=== PATIENT | female | born 1980 | race Caucasian/White ===

== ENCOUNTER 2023-01-06 09:05 | Outpatient (CLI) | payer MEDICARE, SELFPAY ==
--- NOTE | 2023-01-06 09:00 | US_ITS ---
WS: [id number] THYROID ULTRASOUND HISTORY: Desean's with nodules COMPARISON: None available. Right lobe: 1.2 cm x 1.6 cm x 4.2 cm (w x ap x l). Volume: 4.1 cm3. Mildly enlarged heterogeneous nodular thyroid. No discrete well-formed nodules. There is also thicken ing and increased echogenicity throughout the fibrous septa. Left lobe: 1.7 cm x 1.8 cm x 4.8 cm (w x ap x l). Volume: 7.6 cm3. Enlarged, heterogeneous nodular lobe of the thyroid. No well-formed nodules. Thick echogenic fibrous septa throughout the gland. Along the inferior gland there is an additional hypoechoic mass which is probably extension of the th yroid inferiorly and may extend across the midline into the upper chest. Very similar echogenicity as the adjacent thyroid. This additional component measures 3.1 x 1.7 cm. Isthmus: 0.3 cm. IMPRESSION: 1. 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 2. There is an additional solid component measuring 3.1 x 1.7 cm which is isoechoic to the remaining thyroid measuring 3.1 x 1.7 cm. Suspect this is a component of the thyroid gland extending substernal and may cross the midline. No prior studies for comparison. Patient describes prior imaging studies of the thyroid. If these studies become available comparison can be performed. Otherwise consider 6 t o 12-month thyroid ultrasound follow-up.
== END 2023-01-06 09:06 | disposition home or self-care (01) ==
PROVIDERS: PCP Family Medicine Adult Medicine; Visit Provider Family Medicine Adult Medicine
DX: E03.9 Hypothyroidism, unspecified (principal); Z86.39 Personal history of other endocrine, nutritional and metabolic disease
CPT/HCPCS: 76536; 80053; 83036; 84439; 84443; 85025

== ENCOUNTER → 2023-03-08 08:11 | Outpatient (BNVA) | payer MEDICARE, SELFPAY | PROVIDERS: PCP Family Medicine Adult Medicine; Referring Provider Family Medicine Adult Medicine; Visit Provider Internal Medicine | DX: E07.9 Disorder of thyroid, unspecified (principal); E03.9 Hypothyroidism, unspecified; E04.2 Nontoxic multinodular goiter; R13.10 Dysphagia, unspecified; Z79.890 Hormone replacement therapy | CPT/HCPCS: 36415; 84439; 84443; 84480; 99204 ==

== ENCOUNTER 2023-03-30 15:33 | Outpatient (CLI) | payer MEDICARE, SELFPAY ==
[2023-03-30] MEDS: iohexol 350 mg/mL 500 mL Btl (per mL) IV (16:05)
--- NOTE | 2023-03-30 16:30 | CT_ITS ---
WS: [id number] CT NECK TECHNIQUE: Contrast-enhanced CT of the neck with coronal and sagittal reformatted images. CLINICAL INFORMATION: Substernal goiter COMPARISON: Ultrasound 01/06/23 DLP: 586.[address] scans at [facility] use at least one of these dose optimization techniques: automated e xposure control; mA and/or kV adjustment per patient size (includes targeted exams where dose is matc hed to clinical indication); or iterative reconstruction. FINDINGS: Mastoid air cells are well aerated. Paranasal sinuses are well aerated. Normal posterior nasopharynx. Normal parapharyngeal fat. No evidence of supraglottic or glottic mass. Heterogeneous thyroid as described on the recent ultrasound. Low-attenuation RIGHT lower lobe subster nal projecting thyroid nodule measuring 2.7 x 2.6 cm Parotid glands are normal. Normal submandibular glands. No cervical lymphadenopathy. IMPRESSION: 1. Heterogeneous nodular thyroid as described on recent ultrasound. 2. Low-attenuation inferior projecting nodule extending into the upper mediastinum measuring 2.7 x 2 .6 cm. 3. No cervical lymphadenopathy. 4. Normal salivary glands.
--- NOTE | 2023-03-30 17:00 | CT_ITS ---
WS: [id number] CT CHEST TECHNIQUE: Contrast enhanced CT of the chest with coronal and sagittal reformatted images. CLINICAL INFORMATION: Substernal goiter COMPARISON: None. DLP: 586.[address] scans at [facility] use at least one of these dose optimization techniques: automated e xposure control; mA and/or kV adjustment per patient size (includes targeted exams where dose is matc hed to clinical indication); or iterative reconstruction. FINDINGS: Nodular heterogeneous thyroid as seen on the recent ultrasound. Low-attenuation inferior projecting R IGHT thyroid nodule measuring 2.7 x 2.6 cm extending into the upper mediastinum. Normal caliber thora cic aorta. Proximal main pulmonary arteries are normal. No mediastinal or hilar lymphadenopathy. No a xillary lymphadenopathy. 6 mm noncalcified nodule LEFT lower lobe laterally. Recommend 12-month chest CT follow-up. Diffuse fatty infiltration of the liver partially visualized. Normal GE junction. Normal caliber desc ending thoracic aorta. Lungs are well aerated. No acute pulmonary infiltrates. Calcified granuloma RI GHT upper lobe. Mild thoracic curve. IMPRESSION: 1. Low-attenuation inferior projecting RIGHT thyroid nodule measuring 2.7 x 2.6 cm extending into the upper mediastinum. 2. No mediastinal or hilar lymphadenopathy. 3. No acute pulmonary infiltrates. 4. 6 mm noncalcified nodule LEFT lower lobe laterally. Recommend 12-month chest CT follow-up. 5. No other acute findings.
== END 2023-03-30 15:34 | disposition home or self-care (01) ==
PROVIDERS: PCP Family Medicine Adult Medicine; Visit Provider Internal Medicine
DX: E04.2 Nontoxic multinodular goiter (principal)
CPT/HCPCS: 70491; 71260; Q9967

== ENCOUNTER 2023-05-10 09:00 | Outpatient (CLI) | payer MEDICARE, MEDICAID, SELFPAY ==
[2023-05-10 10:01] LABS: Free T4 Free Thyroxine 0.87 ng/dL (0.82-1.77); Thyroid Stimulating Hormone 34.54 uIU/mL (0.27-4.20)
[2023-05-11 11:30] LABS: T3 Total 69 ng/dL (76-181)
== END 2023-05-10 09:01 | disposition home or self-care (01) ==
LOC: LAB 09:01
PROVIDERS: PCP Family Medicine Adult Medicine; Visit Provider Internal Medicine
DX: E07.9 Disorder of thyroid, unspecified (principal)
CPT/HCPCS: 36415; 84439; 84443; 84480

== ENCOUNTER → 2023-05-11 17:00 | Outpatient (BNVA) | payer MEDICARE, MEDICAID, SELFPAY | PROVIDERS: PCP Family Medicine Adult Medicine; Visit Provider Nurse Practitioner Women's Health | DX: Z12.4 Encounter for screening for malignant neoplasm of cervix (principal) | CPT/HCPCS: 88175 ==

== ENCOUNTER → 2023-05-17 14:10 | Outpatient (BNVA) | payer MEDICARE, MEDICAID, SELFPAY | PROVIDERS: PCP Family Medicine Adult Medicine; Visit Provider Psychiatry & Neurology Psychiatry | DX: F43.10 Post-traumatic stress disorder, unspecified (principal); Z79.899 Other long term (current) drug therapy | CPT/HCPCS: 80061; 83036 ==

== ENCOUNTER 2023-05-18 09:35 | Outpatient (CLI) | payer MEDICARE, MEDICAID, SELFPAY ==
--- NOTE | 2023-05-18 09:41 | MM_ITS ---
WS: [id number] BILATERAL 3D TOMOSYNTHESIS DIGITAL SCREENING MAMMOGRAPHY WITH CAD CLINICAL INFORMATION: Z12.39 - Encounter for other screening for malignant neop... HISTORY: Screening mammogram. No current complaints. COMPARISON: 2020 TECHNIQUE: Bilateral CC and MLO views. FINDINGS: The breasts are composed of heterogeneous fibroglandular density tissue, which can limit the detectio n of small underlying mass lesions. Slightly nodular asymmetric density upper outer RIGHT breast mid depth. Recommend RIGHT diagnostic mammography and ultrasound in further evaluation. LEFT breast is unremarkable. IMPRESSION: MM/[place] [id number] BI-RADS: 0-Incomplete: Need additional imaging evaluation FOLLOW UP: Need Additional Imaging Recommend RIGHT breast diagnostic mammography and ultrasound in further evaluat ion.
== END 2023-05-18 09:36 | disposition home or self-care (01) ==
PROVIDERS: PCP Family Medicine Adult Medicine; Visit Provider Nurse Practitioner Women's Health
DX: Z12.31 Encounter for screening mammogram for malignant neoplasm of breast (principal); E03.9 Hypothyroidism, unspecified; E04.2 Nontoxic multinodular goiter; Z79.890 Hormone replacement therapy
CPT/HCPCS: 77063; 77067; 99214

== ENCOUNTER → 2023-05-30 11:14 | Outpatient (BNVA) | payer MEDICARE, SELFPAY | PROVIDERS: PCP Family Medicine Adult Medicine; Visit Provider Nurse Practitioner Women's Health | DX: N93.9 Abnormal uterine and vaginal bleeding, unspecified (principal); D25.9 Leiomyoma of uterus, unspecified; N83.202 Unspecified ovarian cyst, left side | CPT/HCPCS: 76830 ==

== ENCOUNTER 2023-06-15 11:10 | Outpatient (CLI) | payer MEDICARE, MEDICAID, SELFPAY ==
[2023-06-09 10:23] VITALS: BP 129/89; BMI 47.9
--- NOTE | 2023-06-15 11:16 | MM_ITS ---
WS: [id number] RIGHT 3D TOMOSYNTHESIS DIGITAL MAMMOGRAPHY WITH CAD CLINICAL INFORMATION: ABNORMAL MAMMO HISTORY: Additional views COMPARISON: 05/18/2023 TECHNIQUE: 3 views of the right breast were obtained. FINDINGS: Scattered fibroglandular densities of the right breast. Previously described slightly nodular asymmet maite density upper outer RIGHT breast mid depth compresses out today on the spot compression views. Fi ndings are benign. Recommend return to annual screen mammography. No suspicious focal mass, asymmetry, calcifications, or architectural distortion. No evidence of carmelita gnancy. IMPRESSION: MM/[place] [id number] BI-RADS: 2-Benign FOLLOW UP: 1 Year Follow-up Recommend return to annual screening mammography.
== END 2023-06-15 11:11 | disposition home or self-care (01) ==
LOC: RAD 11:10
PROVIDERS: PCP Family Medicine Adult Medicine; Visit Provider Nurse Practitioner Women's Health
DX: R92.8 Other abnormal and inconclusive findings on diagnostic imaging of breast (principal)
CPT/HCPCS: 77061; G0279

== ENCOUNTER 2023-07-13 11:45 | Outpatient (CLI) | payer MEDICARE, SELFPAY ==
[2023-06-09 10:23] VITALS: BP 129/89; BMI 47.9
[2023-07-13 12:53] LABS: Free T4 Free Thyroxine 0.91 ng/dL (0.82-1.77); Thyroid Stimulating Hormone 29.39 uIU/mL (0.27-4.20)
[2023-07-14 12:10] LABS: T3 Total 90 ng/dL (76-181)
== END 2023-07-13 11:46 | disposition home or self-care (01) ==
LOC: LAB 11:46
PROVIDERS: PCP Family Medicine Adult Medicine; Visit Provider Internal Medicine
DX: E03.9 Hypothyroidism, unspecified (principal); E04.2 Nontoxic multinodular goiter
CPT/HCPCS: 84439; 84443; 84480

== ENCOUNTER → 2023-07-14 10:19 | Outpatient (BNVA) | payer MEDICARE, SELFPAY ==
[2023-06-09 10:23] VITALS: BP 129/89; BMI 47.9
== END ==
PROVIDERS: PCP Family Medicine Adult Medicine; Referring Provider Family Medicine Adult Medicine; Visit Provider Physician Assistant
DX: M75.41 Impingement syndrome of right shoulder; M75.42 Impingement syndrome of left shoulder
CPT/HCPCS: 20610; 73030; 99203; J3301

== ENCOUNTER → 2023-07-20 11:05 | Outpatient (BNVA) | payer MEDICARE, SELFPAY ==
[2023-06-09 10:23] VITALS: BP 129/89; BMI 47.9
== END ==
PROVIDERS: PCP Family Medicine Adult Medicine; Visit Provider Internal Medicine
DX: E03.9 Hypothyroidism, unspecified (principal); E04.2 Nontoxic multinodular goiter; R13.10 Dysphagia, unspecified; Z79.890 Hormone replacement therapy; Z79.85 Long-term (current) use of injectable non-insulin antidiabetic drugs
CPT/HCPCS: 99214

== ENCOUNTER → 2023-09-20 14:54 | Outpatient (BNVA) | payer MEDICARE, OTHER, SELFPAY ==
[2023-06-09 10:23] VITALS: BP 129/89; BMI 47.9
== END ==
PROVIDERS: PCP Family Medicine Adult Medicine; Visit Provider Emergency Medicine
DX: R42 Dizziness and giddiness (principal); E11.69 Type 2 diabetes mellitus with other specified complication; E66.01 Morbid (severe) obesity due to excess calories
CPT/HCPCS: 82728; 83540; 83550; 85007; 85027

== ENCOUNTER 2023-09-26 13:56 | Emergency (ER) | payer MEDICARE, SELFPAY ==
[2023-06-09 10:23] VITALS: BP 129/89; BMI 47.9
[2023-09-26 14:00] VITALS: BP 118/81; PULSE 94; RESP 16; TEMP 36.8; O2SAT 98; BMI 46.7
--- NOTE | 2023-09-26 14:03 | W.ED.WEAKNES ---
HPI - Weakness General: Chief complaint: Weakness Stated complaint: general weakness Time Seen by Provider: 09/26/23 14:01 History of Present Illness: 43-year-old female presents emergency department via EMS personnel with complaints of increased weakness and fatigue. The patient was seen in the urgent care on 09/20/2023 with complaints of increased worsening symptoms over the previous 2 weeks. She states she feels that she is anemic as she has been told she has been anemic in the past. Patient was provided ferrous sulfate by Dr. Stiles and advised to follow-up with her primary care provider. She also was provided meclizine as it does appear that Dr. Stiles was able to elicit dizziness when turning her head to the left. It does appear that the patient was also seen by her primary care provider on 08/30/2023 with similar complaints. Associated symptoms: Reports headache(s) Review of Systems General: Reports: 10 or more systems reviewed and unremarkable except in HPI and below Const: Reports: fatigue Neuro: Reports: headache(s) and other (Intermittent bilateral arm paresthesia) [facility] ED PFSH: Medical History (Updated 09/26/23 @ 15:31 by Armando Adler MD) Pharyngitis Irregular menstrual bleeding Type 2 diabetes mellitus with morbid obesity Orthostatic hypotension Shooting pain Multiple thyroid nodules 01/06/23 US nodule, Neck/Chest CT 03/30/23 nodule 2.7 x 2.6 cm in mediastinal Chronic dislocation of left shoulder Psychiatric care 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 H/O Desean thyroiditis Bipolar 1 disorder Post traumatic stress disorder (PTSD) delivery delivered Morbid obesity with body mass index (BMI) of 40.0 or higher Surgical History History of section X2 Family History Father Hypertension Dementia High cholesterol Stroke Mother Obesity Post traumatic stress disorder (PTSD) Cancer Thyroid disease Major depressive disorder Breast cancer Diabetes Sister Breast cancer Thyroid disease Cervical cancer Grandmother Breast cancer Diabetes Social History Smoking and tobacco/nicotine status: never used tobacco/nicotine Alcohol intake: never Substance/Drug Use: never Adopted: No Caregiver/support person: No Lives independently: Yes Household members: family Housing: House Marital status: Number of children: 3 Number of grandchildren: 0 Highest education level completed: Some College, No Degree service: No Current occupational status: disabled Pets and animals: Yes Pets & animals: cat(s) Leisure activites: music, games, reading and other Leisure activities details: walk in park Sexually active: No Do you think of yourself as: Bisexual Current gender identity: Female Katerina/Mormon: Jew Special katerina needs: No Agree to transfusion: Yes Female Reproductive History: Para: 3 Spontaneous abortions: Yes (SAB) Physical Exam Narrative: EXAM NARRATIVE: Constitutional: the patient appears well nourished and with normal development. Vital signs reviewed as documented. HENMT: Normocephalic, atraumatic. External ears normal appearance without drainage. Nose without drainage, normal appearance. Mucus membranes moist. Neck is supple, No jugular venous distension, trachea is midline, no appreciable carotid bruits. No lymphadenopathy. No meningeal signs. Flexion, extension and lateral rotation is without pain. Eyes: Pupils are equal, round, reactive to light and accommodation. No scleral icterus. Extra-ocular movement are intact. Thorax is symmetrical and with equal rise and fall with respirations. Resp: Lungs are clear to auscultation. No wheezes, rales, crackles or ronchi at present. Cardio: Regular rate and rhythm. Positive S1, S2. No appreciable murmurs, rubs or gallops. GI: Abdominal exam reveals normal bowel sounds to all quadrants. No organomegaly. No obvious palpable masses noted. No hepatomegally appreciated. Soft, non-tender to palpation. Extremity: Extremities are non-edematous and both femoral and pedal pulses are 2+ and equal bilaterally. Moves all extremities well, sensation in all extremities. Neuro: Alert and oriented x4, person, place, time and situation. Cranial nerves II through XII are grossly intact, there is no focal neurological deficits that I can appreciate at present. Sensation intact to all extremities. 2-point discrimination intact. Light touch intact to all extremities. Motor strength in the upper and lower extremities are equal and bilateral 5/5. Psych: Cooperative, calm, normal thought process, appropriate judgment. Skin: No lesions, rashes. No gross abnormalities noted. Back: Symmetrical, no obvious deformity, No CVA tenderness Course Vital Signs: Vital signs: Vital Signs Temperature 98.3 F 09/26/23 14:00 Pulse Rate 104 H 09/26/23 15:40 Respiratory Rate 18 09/26/23 15:40 Blood Pressure 118/81 09/26/23 14:00 Pulse Oximetry 95 09/26/23 15:40 Oxygen Delivery Me thod Room Air 09/26/23 14:00 MDM - Weakness Medical Decision Making Physical exam completed and documented I did obtain a CBC and CMP which did not demonstrate any significant abnormalities. Twelve-lead EKG was obtained and documented. CT scan of the head was essentially negative. I did discuss the negative laboratory and radiographic findings with the patient and recommended follow-up with her primary care provider for possible referral for neurology for additional evaluation. Differential diagnosis, electrolyte abnormality, hyperventilation syndrome, somatization disorder, CVA, radiculopathy. Medical Records I reviewed the patient's medical records. Lab Data 09/26/23 14:18 09/26/23 14:[address] 09/26/23 14:14 IMPRESSION: No intracranial lesion or injury Laboratory Results WBC 3.86 10^3/uL (3.29-11.43) 09/26/23 14:18 RBC 5.44 10^6/uL (3.85-5.65) 09/26/23 14:18 Hgb 15.20 g/dL (11.27-16.99) 09/26/23 14:18 Hct 44.7 % (36-47) 09/26/23 14:18 MCV 82.2 fl (85-98) L 09/26/23 14:18 MCH 27.9 pg (27-33) 09/26/23 14:18 MCHC 34.0 g/dL (30-55) 09/26/23 14:18 RDW 13.2 % (12.1-15.1) 09/26/23 14:18 Plt Count 200 10^3/cmm (157-399) 09/26/23 14:18 MPV 10.3 fL (7.4-10.4) 09/26/23 14:18 Neut % (Auto) 62.4 % 09/26/23 14:18 Lymph % (Auto) 31.1 % 09/26/23 14:18 [place] % (Auto) 5.4 % 09/26/23 14:18 Eos % (Auto) 0.3 % 09/26/23 14:18 Baso % (Auto) 0.3 % 09/26/23 14:18 Neut # (Auto) 2.41 10^3/uL (1.8-7.7) 09/26/23 14:18 Lymph # (Auto) 1.2 10^3/uL (0.8-4.8) 09/26/23 14:18 [place] # (Auto) 0.2 10^3/uL (0.2-0.9) 09/26/23 14:18 Eos # (Auto) 0.0 10^3/uL (0.0-0.8) 09/26/23 14:18 Baso # (Auto) 0.0 10^3/uL (0.0-0.1) 09/26/23 14:18 Nucleated RBC % (auto) 0 % 09/26/23 14:18 Nucleated RBCs # 0.0 /100WBC 09/26/23 14:18 Sodium 136 mmol/L (136-145) 09/26/23 14:18 Potassium 4.3 mmol/L (3.5-5.1) 09/26/23 14:18 Chloride 99 mmol/L (98-107) 09/26/23 14:18 Carbon Dioxide 23 mmol/L (22-29) 09/26/23 14:18 Anion Gap 18.3 (5-19) 09/26/23 14:18 BUN 12 mg/dL (6-20) 09/26/23 14:18 Creatinine 0.9 mg/dL (0.5-0.9) 09/26/23 14:18 GFR Calculation 68.0 mL/min (90-130) L 09/26/23 14:18 Glucose 154 mg/dL (65-115) H 09/26/23 14:18 POC Glucose 148 mg/dL (70-110) H 09/26/23 14:25 Calculated Osmolality 285 mOsm/kg (285-295) 09/26/23 14:18 Calcium 9.4 mg/dL (8.5-10.5) 09/26/23 14:18 Total Bilirubin 0.7 mg/dL (0.15-1.2) 09/26/23 14:18 AST 20 U/L (0-32) 09/26/23 14:18 ALT 24 U/L (0-33) 09/26/23 14:18 Alkaline Phosphatase 85 U/L (35-105) 09/26/23 14:18 Total Protein 6.6 g/dL (6.6-8.7) 09/26/23 14:18 Albumin 4.2 g/dL (3.5-5.2) 09/26/23 14:18 Globulin 2.4 g/dL (1.3-4.6) 09/26/23 14:18 All radiology interpretation(s) finalized by discharge EKG Data EKG 1: Interpretation: Twelve-lead EKG obtained at 1421 reviewed at 1423 demonstrates sinus rhythm, ventricular rate 91 bpm, WV interval 195, QRS duration 111, QT 360, QTc [address] elevation or depression to demonstrate acute ischemia or infarction at present. There does appear to be a chronic right bundle branch block that is noted. Discharge Plan Discharge Patient Disposition: Home Clinical Impression: Anxiety, Arm paresthesia, left, Arm paresthesia, right Headache Qualifiers: Headache type: unspecified Headache chronicity pattern: acute headache Intractability: not intractable Qualified Code(s): R51.9 - Headache, unspecified Condition: Stable Prescriptions: No Action levothyroxine 200 mcg capsule 200 mcg PO DAILY Qty: 90 1RF liothyronine [Cytomel] 5 mcg tablet 10 mcg PO DAILY Qty: 180 1RF medroxyprogesterone [Depo-Provera] 150 mg/mL suspension 150 mg IM .o4zhohov Qty: 1 3RF meclizine 25 mg tablet 25 mg PO BID PRN (Reason: dizziness) Qty: 60 0RF metformin 500 mg tablet extended release 24 hr 500 mg PO DAILY Qty: 30 5RF Ozempic 0.25 mg or 0.5 mg (2 mg/3 mL) pen injector 0.5 mg SUBCUT .q week Qty: 3 1RF Rx Instructions: 0.25 mg weekly for 4 weeks then 0.5 mg weekly duloxetine 60 mg capsule,delayed release(DR/EC) 60 mg PO DAILY Qty: 30 2RF hydroxyzine HCl 50 mg tablet 50 mg PO QID PRN (Reason: ianxiety/insomnia) Qty: 120 2RF prazosin 1 mg capsule 1 mg PO .q hs Qty: 30 2RF ferrous sulfate 27 mg iron tablet 27 mg PO DAILY buspirone 10 mg tablet 10 mg PO BID Qty: 60 2RF meclizine 50 mg tablet 50 mg PO BID PRN (Reason: dizziness) Qty: 30 0RF levothyroxine 75 mcg tablet 75 mcg PO DAILY Qty: 90 0RF Rx Instructions: take with 200mcg daily total 275mcg daily meloxicam 15 mg tablet 15 mg PO DAILY Qty: 30 2RF Discharge Orders: Discharge ED (Routine); Ordered 09/26/23 Ordered By: Armando Adler Referrals: Miguel Ángel Davis MD [Primary Care Provider] - Discharge Diet: Usual diet Discharge Activity: Resume usual activity Patient Instructions: Opioid Safety, Pain Management Activity Restrictions/Additional Instructions: Activity Restrictions/Additional Instructions: Thank you for choosing [facility] for your healthcare needs today. Please realize that you were seen in the Emergency Department and that we are providing you with an emergency medical screening exam and this may not be a complete and all inclusive of all the testing and or medical work-up that you may need to determine your ailment or severity of your illness. It is very important that you follow-up as instructed with your Primary care provider or Specialist for additional evaluation and to discuss your medical treatment plan. Coding Level of Care Code ED Epic Application Coordinator for Vivian Adamson
--- NOTE | 2023-09-26 14:14 | CTR_ITS ---
PROCEDURE INFORMATION: Exam: CT Head Without Contrast Exam date and time: 09/26/2023 2:37 PM Age: 43 years old Clinical indication: Altered mental status/memory loss; Patient HX: Left arm and abdominal numbness described by patient/ patient seems a bit disoriented and or nervous; Additional info: Weakness/facial numbness TECHNIQUE: Imaging protocol: Computed tomography of the head without contrast. Radiation optimization: All CT scans at this facility use at least one of these dose optimization techniques: automated exposure control; mA and/or kV adjustment per patient size (includes targeted exams where dose is matched to clinical indication); or iterative reconstruction. COMPARISON: CT neck w con* [id number] 03/30/2023 4:29 PM RADIATION DOSE METRICS: Total DLP (mGy-cm): 1422.28 FINDINGS: Brain: There is no evidence of infarct, kern-white matter differentiation is preserved. There is no hemorrhage or extra-axial collection. There is no mass. Cerebral ventricles: There is no hydrocephalus. Choroid plexus cysts are incidentally noted. Paranasal sinuses: Visualized sinuses are unremarkable. No fluid levels. Mastoid air cells: Visualized mastoid air cells are well aerated. Bones/joints: Unremarkable. No acute fracture. Soft tissues: Unremarkable. CT/CT head wo con* [id number] IMPRESSION: No intracranial lesion or injury
--- NOTE | 2023-09-26 14:21 | ECG_ITS ---
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 Measurements Intervals [place] Rate: 91 P: 51 [place]: 195 QRS: -57 QRSD: 111 T: 58 QT: 360 QTc: 444 Interpretive Statements SINUS RHYTHM LOW QRS VOLTAGE IN PRECORDIAL LEADS [QRS DEFLECTION < 1.0 mV IN CHEST LEADS] PATTERN CONSISTENT WITH PULMONARY DISEASE INCOMPLETE RIGHT BUNDLE BRANCH BLOCK [90+ ms QRS DURATION, TERMINAL R IN V1/V2, 40+ ms S IN I/aVL/V4/V5/V6] LEFT ANTERIOR FASCICULAR BLOCK [QRS AXIS <= -45, QR IN I, RS IN II] No previous ECG available for comparison Electronically Signed On 09-26-2023 17:17:18 CDT by Hernandez oSsa M.D. [id number]
[2023-09-26 14:27] LABS: Basophils % 0.3 %; Eosinophils % 0.3 %; Hematocrit 44.7 % (36-47); Lymphocytes # 1.2 10^3/uL (0.8-4.8); Lymphocytes % 31.1 %; Mean Corpuscular Hemoglobin 27.9 pg (27-33); Mean Corpuscular Volume 82.2 fl (85-98); Mean Platelet Volume 10.3 fL (7.4-10.4); Monocytes # 0.2 10^3/uL (0.2-0.9); Monocytes % 5.4 %; Neutrophils # 2.41 10^3/uL (1.8-7.7); Neutrophils % 62.4 %; Nucleated Red Blood Cells % 0 %; Platelet Count 200 10^3/cmm (157-399); Red Blood Count 5.44 10^6/uL (3.85-5.65); Red Cell Distribution Width 13.2 % (12.1-15.1); White Blood Count 3.86 10^3/uL (3.29-11.43)
[2023-09-26 14:29] LABS: Glucose Point of Care 148 mg/dL (70-110)
[2023-09-26 14:42] LABS: Alanine Aminotransferase 24 U/L (0-33); Albumin Level 4.2 g/dL (3.5-5.2); Alkaline Phosphatase 85 U/L (35-105); Anion Gap 18.3 (5-19); Aspartate Amino Transferase 20 U/L (0-32); Blood Urea Nitrogen 12 mg/dL (6-20); Calcium 9.4 mg/dL (8.5-10.5); Carbon Dioxide 23 mmol/L (22-29); Chloride 99 mmol/L (98-107); Creatinine Clr Calc Pharmacy 137.8496; Globulin 2.4 g/dL (1.3-4.6); Glucose 154 mg/dL (65-115); Osmolality Calculated 285 mOsm/kg (285-295); Potassium 4.3 mmol/L (3.5-5.1); Sodium 136 mmol/L (136-145); Total Bilirubin 0.7 mg/dL (0.15-1.2); Total Protein 6.6 g/dL (6.6-8.7)
[2023-09-26 15:40] VITALS: PULSE 104; RESP 18; O2SAT 95
== END 2023-09-26 15:41 | disposition home or self-care (01) ==
PROVIDERS: Emergency Provider Internal Medicine; PCP Family Medicine Adult Medicine
DX: R51.9 Headache, unspecified (principal); F41.9 Anxiety disorder, unspecified; R20.2 Paresthesia of skin; Z79.84 Long term (current) use of oral hypoglycemic drugs; Z79.85 Long-term (current) use of injectable non-insulin antidiabetic drugs; E11.9 Type 2 diabetes mellitus without complications
CPT/HCPCS: 36415; 36416; 70450; 80053; 82962; 85025; 93005; 99284

== ENCOUNTER → 2023-09-27 14:25 | Outpatient (BNVA) | payer MEDICARE, SELFPAY ==
[2023-06-09 10:23] VITALS: BP 129/89; BMI 47.9
== END ==
PROVIDERS: PCP Family Medicine Adult Medicine; Visit Provider Nurse Practitioner Family
DX: R39.9 Unspecified symptoms and signs involving the genitourinary system (principal)
CPT/HCPCS: 81000; 87086

== ENCOUNTER → 2023-10-23 11:46 | Outpatient (BNVA) | payer MEDICARE, SELFPAY ==
[2023-10-02 09:22] VITALS: BP 129/89; BMI 47.9
== END ==
PROVIDERS: PCP Family Medicine Adult Medicine; Visit Provider Registered Nurse Neonatal Intensive Care
DX: M54.50 Low back pain, unspecified (principal); R30.0 Dysuria
CPT/HCPCS: 81000; 87086

== ENCOUNTER 2023-10-31 12:27 | Observation (INO) | payer MEDICARE, SELFPAY ==
[2023-10-02 09:22] VITALS: BP 129/89; BMI 47.9
[2023-10-31] VITALS (29 sets, daily range): BP systolic 106–152; BP diastolic 73–109; PULSE 82–123; RESP 17–21; TEMP 36.6–37; O2SAT 93–98; BMI 47.0
[2023-10-31] MEDS: sodium chloride 0.9% 1,000 ML 30 ML IV (06:29)
[2023-10-31 06:37] LABS: OR HCG Qualitative Urine Negative (Negative)
--- NOTE | 2023-10-31 06:48 | ANES.PREANE2 ---
Pre-Anesthetic Assessment Height/Weight: Height 1.85 m Weight 161.932 kg Temp Pulse Resp BP Pulse Ox O2 Del Method 97.8 F 123 H 18 140/87 96 Room Air 10/31/23 06:17 10/31/23 06:17 10/31/23 06:17 10/31/23 06:17 10/31/23 06:17 10/31/23 06:17 Operation Date: 10/31/23 07:00 Proposed Procedures p Hemithyroidectomy 76058, 66940, E04.1(Right) - Inderjit Dowd MD Familial anesthetic complications: None Was Beta Tan taken within 24 hours: N/A Was Clonidine taken within 24 hours: N/A Last intake: Intake Last Liquid Date 10/30/23 Last Liquid Time 21:00 Last Solid Date 10/30/23 Last Solid Time 21:00 Social No alcohol and No tobacco Exam alert, oriented x 3, clear to auscultation bilaterally and regular rate & rhythm Airway Mallampati: Class IV Dentition: chipped and other (crowns) Metabolic Diabetes Mellitus (pre-dm), Morbid Obesity and Thyroid Disease Anesthetic Plan ASA status: 3 Anesthesia: General Risk of > 500 ml blood loss (7ml/kg in children): No Medications/Allergies Home Medications Medication Instructions Recorded Confirmed Last Taken Type ferrous sulfate 27 mg iron tablet 27 mg PO DAILY 05/18/23 10/31/23 10/30/23 History levothyroxine 200 mcg capsule 200 mcg PO DAILY #90 caps 05/18/23 10/31/23 10/31/23 05:00 Rx liothyronine 5 mcg tablet (Cytomel) 10 mcg (2 x 5 mcg) PO DAILY #180 05/18/23 10/31/23 10/31/23 05:00 Rx tabs meclizine 25 mg tablet 25 mg PO BID PRN dizziness #60 tabs 07/26/23 10/30/23 Unknown Rx metformin 500 mg tablet,extended 500 mg PO DAILY diabetes #30 tabs 08/11/23 10/30/23 10/30/23 Rx release 24 hr levothyroxine 75 mcg tablet 75 mcg PO DAILY #90 tabs 08/15/23 10/31/23 10/31/23 05:00 Rx meloxicam 15 mg tablet 15 mg PO DAILY inflamation/pain 08/29/23 10/30/23 2 Weeks Ago Rx #30 tabs ~10/16/23 hydroxyzine HCl 50 mg tablet 50 mg PO QID PRN ianxiety/insomnia 09/20/23 10/30/23 10/29/23 Rx #120 tabs meclizine 50 mg tablet 50 mg PO BID PRN dizziness #30 tabs 09/20/23 10/30/23 10/28/23 Rx prazosin 1 mg capsule 1 mg PO .q hs #30 caps 09/20/23 10/30/23 10/29/23 Rx semaglutide 0.25 mg or 0.5 mg (2 0.5 mg (0.736 mL) SUBCUT .q week 10/17/23 10/30/23 10/23/23 Rx mg/3 mL) subcutaneous pen injector #3 mL (Ozempic) nitrofurantoin 100 mg PO BID 5 days #10 caps 10/23/23 10/30/23 10/29/23 Rx monohydrate/macrocrystals 100 mg capsule (Macrobid) Allergies Allergy/AdvReac Type Severity Reaction Status Date / Time zolpidem [From Ambien] Allergy Unknown ADR-Halluci Verified 10/23/23 10:51 nating lorazepam [From Ativan] AdvReac ADR-Halluci Verified 10/23/23 10:51 nating prednisone AdvReac ADR-Agitate Verified 10/23/23 10:51 d Current Medications Generic Name Dose Route Start Last Admin Trade Name Freq PRN Reason Stop Dose Admin Sodium Chloride 1,000 mls @ 30 mls/hr 10/31/23 06:15 10/31/23 06:29 Sodium Chloride 0.9% IV 11/01/23 06:14 30 mls/hr .Q24H ROWAN Administration PFSH Anesthesia Medical History (Updated 10/04/23 @ 00:01 by MONET Grossman) Pharyngitis Irregular menstrual bleeding Type 2 diabetes mellitus with morbid obesity Orthostatic hypotension Shooting pain Multiple thyroid nodules 01/06/23 US nodule, Neck/Chest CT 03/30/23 nodule 2.7 x 2.6 cm in mediastinal Chronic dislocation of left shoulder Psychiatric care 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 H/O Desean thyroiditis Bipolar 1 disorder Post traumatic stress disorder (PTSD) delivery delivered Morbid obesity with body mass index (BMI) of 40.0 or higher Surgical History History of section X2 Family History Father Hypertension Dementia High cholesterol Stroke Mother Obesity Post traumatic stress disorder (PTSD) Cancer Thyroid disease Major depressive disorder Breast cancer Diabetes Sister Breast cancer Thyroid disease Cervical cancer Grandmother Breast cancer Diabetes Social History Smoking and tobacco/nicotine status: never used tobacco/nicotine Alcohol intake: never Substance/Drug Use: never Adopted: No Caregiver/support person: No Lives independently: Yes Household members: family Housing: House Marital status: Number of children: 3 Number of grandchildren: 0 Highest education level completed: Some College, No Degree service: No Current occupational status: disabled Pets and animals: Yes Pets & animals: cat(s) Leisure activites: music, games, reading and other Leisure activities details: walk in park Sexually active: No Do you think of yourself as: Bisexual Current gender identity: Female Katerina/Latter Day: Roman Catholic Special katerina needs: No Agree to transfusion: Yes Female Reproductive History Date of last menstrual period: 10/24/23 Para: 3 Spontaneous abortions: Yes (SAB) Data Anesthesia Cardiac Studies: No Data to Display
--- NOTE | 2023-10-31 06:51 | W.PM.OPSUD ---
Surgery/Procedure H&P Update DATE OF PROCEDURE: October 31, 2023 DATE H&P PERFORMED: 10/13/23 PRIMARY INDICATION FOR PROCEDURE: Right Thyroid Nodule with Repetedly nondiagnostic FNA biopsy - patient desires removal PLANNED PROCEDURE: Operation Date: 10/31/23 07:00 Proposed Procedures p Hemithyroidectomy 67206, 26547, E04.1(Right) - Inderjit Dowd MD
[2023-10-31] MEDS: ceFAZolin 3,000 MG in sodium chloride 0.9% (plus) 100 ML 200 MG IV (06:59)
[2023-10-31] MEDS: lidocaine-epi 1% 20 mL INJ INJECTION (08:14)
[2023-10-31] MEDS: ceFAZolin 1,000 mg SDV 1000 MG IRRIGATION (08:15)
[2023-10-31] MEDS: fluorescein 1 mg Strip XX (09:30)
[2023-10-31] MEDS: EPINEPHrine 1 mg/mL INJ XX (09:30)
[2023-10-31] MEDS: thrombin 5,000 unit SDV 5000 UNIT XX (09:30)
--- NOTE | 2023-10-31 09:46 | XR_ITS ---
WS: [id number] XR chest 1V portable [id number] REASON FOR EXAM: surgery FINDINGS: Partially collapsed stent at the thoracic inlet incompletely evaluated. Pneumomediastinum and pneumopericardium. Right lung is relatively clear. Left lung demonstrates central coarse reticular interstitial opacities of unknown chronicity. XR/XR chest 1V portable [id number] IMPRESSION: Pneumomediastinum and pneumopericardium. No pneumothorax identified bilaterally . Incompletely evaluated partially collapsed stent at the thoracic inlet and AP a nd lateral view of the neck may be helpful.
[2023-10-31] MEDS: neomycin-poly-bacitracin oint 28 gm 1 APPLIC TOPICAL (10:20)
--- NOTE | 2023-10-31 10:50 | XRR_ITS ---
PROCEDURE INFORMATION: Exam: XR Chest Exam date and time: 10/31/2023 10:59 AM Age: 43 years old Clinical indication: Condition or disease; Lung condition and disease; Pneumonia; Additional info: Follow up TECHNIQUE: Imaging protocol: Radiologic exam of the chest. Views: 1 view. COMPARISON: CR XR chest 1V portable [id number] 10/31/2023 9:54 AM FINDINGS: Tubes, catheters and devices: Surgical clips project about the base of the neck. Lungs: Decreased conspicuity of patchy airspace opacities about the bilateral hilar regions. Pleural spaces: No large pleural effusion. No distinct pneumothorax. Heart/Mediastinum: Cardiomediastinal silhouette is midline and stable in size. Bones/joints: No acute osseous findings. XR/XR chest 1V portable [id number] IMPRESSION: Decreased conspicuity of patchy airspace opacities about the bilateral hilar regions.
--- NOTE | 2023-10-31 11:06 | PM.OP ---
Operative Report Date of procedure: October 31, 2023 Pre-op diagnosis: Right thyroid nodule with repeatedly non Diagnostic FNA biopsies in a patient who desires thryroidectomy Post-op diagnosis: same Post-op diagnosis: - Multinodular right thyroid lobe - Dominant nodule in the right inferior pole - Scirrous attachement of the right thyroid lobe to the airway - Right recurrent laryngeal nerve identified and preserved intact - High riding right lung apex and innominate artery - Airleak - O/W normal right anterior neck exam Post-op findings: Same Procedure done: Right hemithyroidectomy Implants: None Specimens removed/disposition: Right thyroid lobe Pathology: Right thyroid lobe Surgeon: Inderjit Dowd Surgeon: Inderjit Dowd MD Electronics Installer: Ramiro Cote Anesthesia: General Estimated blood loss (mL): 50 IV fluids (mL): 1,200 Urine output (mL): 100 Complications: Air leak into the neck wound Findings: - Multinodular right thyroid lobe with dominant nodule in the inferior pole - Hard, scirrous attachment of the right thyroid lobe to the airway - Intact right recurrent laryngeal nerve and normal bilateral true vocal cord mobility after extubation - One parathyroid identified and preserved in place - Air leak into the neck wound - High riding right lung apex into the cervical wound - High riding right innominate artery - O/W normal right anterior neck exam Condition: stable Disposition: ICU Brief History: 43 yo wf with a h/o right thyroid nodule with repeatedly non diagnostic FNA biopsies. The patient desires right hemithyroidectomy. Procedure: The patient was identified in the preop holding area and was taken to the operating where she was placed on the operating table in the supine position. Anesthesia was obtained with general endotracheal anesthesia. The Nirvana nerve monitoring electrode was placed on the endotracheal tube prior to intubation and the placement was confirmed with the glide scope. The nerve monitoring system was attached to the patient in the standard fashion. An anterior neck incision was drawn out on the patient 2 fingerbreadths above the sternal notch and was injected with local anesthesia. The patient was then prepped and draped in the usual sterile fashion. The anterior neck incision was then made with a 15 blade and was carried down through the subcutaneous tissues and fat with the with electrocautery and the harmonic scalpel. The dissection proceeded into the deep tissues until the airway was identified both visually and to palpation. Using the nerve monitoring hemostat the thyroid isthmus was dissected off of the trachea and was divided with the harmonic scalpel. At this point the [place] retractor was placed in the wound and the right lobe was dissected free from the surrounding tissues using blunt dissection using the Neurvana nerve monitoring hemostat. The nerve monitoring hemostat was then used to dissected in a circumferential fashion around the right thyroid lobe. The right lobe was large and had a dominant nodule in the inferior pole. There was dense scirrhous attachment of the gland itself to the surrounding tissues. The superior pole was then dissected free from the surrounding tissues and each individual superior pole vessel was dissected free from the surrounding tissues and was clipped and divided individually. The right thyroid lobe was then rotated medially and the patient was immediately found to have a very high riding lung apex and innominate artery. The lung and the innominate artery was then retracted inferiorly and as the right thyroid lobe was dissected free and the recurrent nerve was identified and preserved in place. The inferior pole parathyroid gland was found resting on the apex of the right lung apex. The right thyroid lobe was then rotated medially and was dissected free from the recurrent nerve using blunt dissection and bipolar cautery while controlling the vessels to the inferior pole and superior pole with ligaclips and bipolar cautery. Eventually the right thyroid lobe was removed from the patient and an inspection was carried out of the patient's right neck wound. At this point there were some bubbles noted in the wound and there was a concern for possible pneumothorax. A chest x-ray was taken and Dr. Rodri Marques of Cardiothoracic Surgery was consulted intraoperatively. There was no pneumothorax noted on intraoperative chest x-ray and after discussion with Dr. Harmon we elected to close the patient with drains in place and observe as there were no obvious sources of the leak. At this point the drains were placed in the wound. Gelfoam soaked in thrombin and Decadron were then placed in the right tracheoesophageal groove. The wound was then closed with interrupted 4 Monocryl sutures and subcu and a running 5-0 Prolene on the skin. The wounds were then cleaned and covered triple antibiotic ointment. The patient was then extubated and her true vocal cords were observed after extubation and she was found to have normal true vocal cord mobility bilaterally. At this point procedures terminated and control of the patient was returned to anesthesia and she was taken to the intensive care unit in stable condition. There were no operative or anesthetic complications.
--- NOTE | 2023-10-31 12:00 | PC.NURSE ---
Pt was admitted to ICU this shift from surgery. Neck incision and two drains present. Surgery staff brought patients belongings and placed in closet. Clothing, phone, wallet, and chemicals distiller was noted. No difficulty breathing noted.
[2023-10-31] MEDS: HYDROcodone-acetaminophen 5-325 mg Tablet 1 TAB PO ×2 (12:51→20:16)
[2023-10-31] MEDS: ondansetron 2 mg/ML SDV 2 mL 4 MG IVP (12:54)
[2023-10-31] MEDS: lactated ringers 1,000 ML 100 ML IV ×2 (12:55→22:58)
--- NOTE | 2023-10-31 13:27 | ANE.PACU2 ---
Inpatient post-anesthesia follow up: Airway intact: Yes Vital signs: Temperature 97.8 F Pulse Rate 123 Respiratory Rate 18 Blood Pressure 140/87 Pulse Oximetry 96 Oxygen Delivery Me thod Room Air Oxygen Flow Rate Fraction of Inspir ed Oxygen Hydration adequate: Yes Nausea and vomiting: No Pain level: 1 Mental status: Baseline
[2023-10-31] MEDS: famotidine 20 mg/2 mL INJ IVP (15:40)
[2023-10-31] MEDS: clindamycin 600 MG/50 ML PREMIX 100 MG IV ×2 (15:41→23:00)
[2023-10-31] MEDS: morphine 4 mg/mL SDV 1 mL 2 MG IVP ×3 (15:47→22:26)
--- NOTE | 2023-10-31 17:28 | P.PN_ITS ---
Subjective Subjective: 43 yo wf who is night of surgery s/p rig ht hemithyroidectomy. The patient c/o periincisional pain, but is o/w without c/o. She is taking clear liquids without difficulty. Medications: Reviewed: Yes Vitals/I&O/Wt Last Vital Signs Temp 97.8 F 10/31/23 06:17 Pulse 88 10/31/23 16:30 Resp 20 H 10/31/23 15:47 BP 116/89 10/31/23 16:30 Pulse Ox 95 10/31/23 16:30 O2 Del Method Room Air 10/31/23 14:21 10/31/23 10/31/23 10/31/23 06:59 14:59 22:59 Intake Total 1340 / 1340 Output Total 100 / 100 Balance 1240 / 1240 Weight last 48 hrs Weight 165.108 kg Weight 161.932 kg Physical Exam Const: COMMON NORMALS: no acute distress, patient oriented x3 and alert GENERAL APPEARANCE: cooperative and comfortable NUTRITIONAL APPEARANCE: obese HENMT: COMMON NORMALS: normocephalic, atraumatic and hearing grossly normal bilaterally HEAD & SCALP: normocephalic and atraumatic FACE & SINUS: normal facial exam Eye: COMMON NORMALS: conjunctivae normal and no scleral icterus CONJUNCTIVA: Yes conjunctivae normal Neck/C-Spine: COMMON NORMALS: full ROM, no lymphadenopathy and supple GENERAL: Yes other (Anterior neck incision intact without swelling; no crepit ance.) Chest: COMMONS NORMALS: normal inspection of the chest Resp: COMMON NORMALS: normal respiratory effort, No retractions and No use of accessory muscles Neuro: COMMON NORMALS: patient oriented x3 SENSORIUM/ORIENTATION: Yes alert Urinary Catheter Management: Tamayo: Cath Placed During This Visit: yes Urinary Catheter Date of Insertion: 10/31/23 Urinary Catheter Time of Insertion: 07:20 Data Other data: I reviewed the patient's post operative Chest X Rays A&P Assessment and plan (1) Thyroid cancer: Impression: - Right Thyroid Lobe Nodule suspicious for malignancy in patient who is doing well c/p right hemithyroidectomy - Intraoperative leak of air into the wound with no evidence of pneumothorax or other injury plan: - Observation overnight in the ICU - Clear liquid diet - Pain management - Closed suction drainage - We will discharge when she is able to take po and her lungs are clear Attestations Medical Necessity Statement*: The patient requires overnight observation of her airway Coding Level of Care Code Acute Code for Chg Fwd Diagnoses Thyroid cancer C73
[2023-10-31] MEDS: phenol oral Spray 177 mL 3 SPRAY MUCOUS MEM (17:45)
--- NOTE | 2023-10-31 19:43 | XRR_ITS ---
PROCEDURE INFORMATION: Exam: XR Chest Exam date and time: 10/31/2023 7:44 PM Age: 43 years old Clinical indication: Other: F/u cxr; Prior surgery; Surgery date: Post-operative (0-2 days); Surgery type: Thyroid; Additional info: Follow up TECHNIQUE: Imaging protocol: Radiologic exam of the chest. Views: 1 view. COMPARISON: CR XR chest 1V portable [id number] 10/31/2023 10:59 AM FINDINGS: Limitations: Moderate patient rotation. Lungs: Low lung volumes with basilar atelectasis. No definitive consolidation. Pleural spaces: No definitive pleural effusion. No obvious pneumothorax. Left apical lucency without pleural line is nonspecific.. Heart/Mediastinum: Resolving pneumomediastinum and subcutaneous gas in the neck. Bones/joints: Unremarkable. Organs: Postoperative changes in the upper neck related to recent thyroidectomy. XR/XR chest 1V portable [id number] IMPRESSION: 1. Resolving postoperative changes in the lower neck and upper chest. 2. Left apical lucency without pleural line, likely within normal limits. Recommend follow-up.
[2023-10-31] MEDS: prazosin 1 mg Capsule PO (20:15)
--- NOTE | 2023-10-31 21:15 | PC.NURSE ---
Education: Pt attempted to put body glitter on. Educated pt that she need to avoid the use of body glitter entirely while her incision is healing and to follow up with Dr. Dowd when she can use it again. Pt attempted to spray perfume on her body. Instructed the pt to avoid using perfume on the upper body as to not irritate the incision. Multiple times pt has reached up and touch her incision with her hands. Provided education on the importance of avoiding hand contact with the incision because it needs to be kept clean and dry to avoid infection. Pt verbalized understanding and states she will do better .
[2023-11-01] VITALS (21 sets, daily range): BP systolic 102–145; BP diastolic 65–93; PULSE 65–92; RESP 12–23; TEMP 36.2–37.1; O2SAT 92–100
[2023-11-01] MEDS: famotidine 20 mg/2 mL INJ IVP ×2 (01:55→15:52)
[2023-11-01] MEDS: HYDROcodone-acetaminophen 5-325 mg Tablet 1 TAB PO ×3 (02:20→16:36)
[2023-11-01] MEDS: diphenhydrAMINE 50 mg/mL SDV 1mL 12.5 MG IVP (02:21)
--- NOTE | 2023-11-01 03:43 | XRR_ITS ---
PROCEDURE INFORMATION: Exam: XR Chest Exam date and time: 11/01/2023 3:55 AM Age: 43 years old Clinical indication: Condition or disease; Other: F/u pneumothorax; Additional info: Follow up TECHNIQUE: Imaging protocol: Radiologic exam of the chest. Views: 1 view. COMPARISON: CR (CHEST, ) 10/31/2023 7:44 PM FINDINGS: Lungs: Stable bibasilar atelectasis. Pleural spaces: Unremarkable. No pleural effusion. No pneumothorax. Heart/Mediastinum: Stable pneumomediastinum. Bones/joints: Unremarkable. Organs: Postoperative changes of the upper neck related to recent thyroidectomy. XR/XR chest 1V portable [id number] IMPRESSION: No significant interval change from 10/31/2023.
--- NOTE | 2023-11-01 04:59 | P.PN_ITS ---
Subjective Subjective: 43 yo wf who is POD #1 s/p right hemithy roidectomy for a right thyroid nodule with repeatedly non diagnostic FNA biopsies. The patient is without c/o. She is taking clear liquids without difficulty. Medications: Reviewed: Yes Vitals/I&O/Wt Last Vital Signs Temp 98.7 F 11/01/23 00:00 Pulse 81 11/01/23 04:00 Resp 16 11/01/23 04:00 BP 145/71 11/01/23 04:00 Pulse Ox 97 11/01/23 04:00 O2 Del Method Room Air 11/01/23 04:00 10/31/23 10/31/23 11/01/23 14:59 22:59 06:59 Intake Total 1340 / 1340 1550 / 2890 1258.333 / 4148.333 Output Total 100 / 100 20 / 120 1500 / 1620 Balance 1240 / 1240 1530 / 2770 -241.667 / 2528.333 Weight last 48 hrs Weight 165.108 kg Weight 161.932 kg Physical Exam Const: COMMON NORMALS: no acute distress, patient oriented x3 and alert GENERAL APPEARANCE: cooperative, comfortable and well kempt NUTRITIONAL APPEARANCE: obese HENMT: COMMON NORMALS: normocephalic, atraumatic, hearing grossly normal bilaterally, external ears normal and Normal external nose present HEAD & SCALP: normocephalic and atraumatic FACE & SINUS: normal facial exam and face symmetric NOSE: Normal external nose present EXTERNAL EAR: Yes external ears normal Eye: COMMON NORMALS: EOMs intact bilaterally, conjunctivae normal and no scleral icterus CONJUNCTIVA: Yes conjunctivae normal Neck/C-Spine: COMMON NORMALS: no lymphadenopathy and Thyroid normal (The neck incision is without swelling or erythema.) THYROID: Thyroid normal (The neck incision is without swelling or erythema.) Resp: COMMON NORMALS: normal respiratory effort, No use of accessory muscles and clear to auscultation bilaterally EFFORT & INSPECTION: Yes able to speak in complete sentences AUSCULTATION: clear to auscultation bilaterally Cardio: COMMON NORMALS: regular rate, regular rhythm and No murmurs present (Cardio) RATE: regular rate RHYTHM: regular rhythm GI: COMMON NORMALS: Normal to inspection, nondistended, normoactive bowel sounds present Extremity: COMMON NORMALS: normal to inspection Neuro: COMMON NORMALS: patient oriented x3 SENSORIUM/ORIENTATION: Yes alert Psych: APPEARANCE: Yes well kempt Urinary Catheter Management: Tamayo: Cath Placed During This Visit: yes, but has since been removed by the nurse Reason for Continuing Indwelling Catheter: Decision to DC Catheter Urinary Catheter Date of Insertion: 10/31/23 Urinary Catheter Time of Insertion: 07:20 Date Urinary Catheter Removed: 11/01/23 Time Urinary Catheter Discontinued: 02:29 Data Other data: Chest X Ray: I reviewed this morning's chest x ray A&P Assessment and plan (1) Thyroid cancer: Impression: 43 yo wf who is POD #1 s/p right hemithyroidectomy doing well Plan: - Observe in the ICU today. D/C this afternoon/evening if the patient tolerates regular diet today - Pain control Attestations Medical Necessity Statement*: The patient required overnight ICU observation of her airway Coding Level of Care Code Acute Code for Chg Fwd Diagnoses Thyroid cancer C73
[2023-11-01] MEDS: docusate sodium 100 mg Capsule PO (08:21)
[2023-11-01] MEDS: liothyronine 5 mcg Tablet 10 MCG PO (08:21)
[2023-11-01] MEDS: levothyroxine 75 mcg Tablet PO (08:21)
[2023-11-01] MEDS: levothyroxine 200 mcg Tablet PO (08:22)
[2023-11-01] MEDS: lactated ringers 1,000 ML 100 ML IV (08:29)
[2023-11-01] MEDS: metformin XR 500 MG Tablet PO (10:07)
--- NOTE | 2023-11-01 11:43 | XR_ITS ---
WS: [id number] XR chest 1V portable [id number] REASON FOR EXAM: follow up FINDINGS: The chest is unchanged compared to 11/11/2023. There is atelectasis in the lung bases. There is a pneumomediastinum and pneumopericardium. No pneumothorax. Surgical drain and clips at the level of thoracic inlet compatible with thyroidectomy. XR/XR chest 1V portable [id number] IMPRESSION: Stable abnormal chest as above. Interpretation of initial examination of 10/31/2023 at 9:57 a.m. was done with mi katina regarding the surgery being performed. What was construed as a par tially collapsed stent obviously is a portion of the surgical sponge in the thy roidectomy bed.
--- NOTE | 2023-11-01 17:37 | P.DS_ITS ---
Discharge Providers Date of Admission: 10/31/23 12:27 Date of Discharge: November 01, 2023 Attending Provider at Admission: Inderjit Dowd MD Attending Provider at Discharge: Inderjit Dowd MD Consults: Dr. Rodri Marques MD - Intraoperative consult Primary Care Provider: Miguel Ángel Davis MD Diagnoses at Discharge Discharge Diagnosis (1) Thyroid cancer: Details from hospital stay: Right thyroid nodule with repeatedly non diagnostic FNA biopsies Status: Acute Reason for Visit Reason for Visit: E04.1 Brief History: 43 yo wf with a h/o a right inferior john e thyroid nodule with repeatedly non diagnostic FNA biopsy who desires surgical biopsy. Hospital Course Hospital Course The patient underwent surgery on the day of admission - please see the op note for description of this operation. The patient was noted intraoperatively to have air bubbling from the deep portion of the wound that was difficult to localize. An intraoperative consult to cardiothoracic surgery was obtained and we elected to observe. The patient was transferred to the intensive care unit after the surgery and was observed overnight with serial chest x-rays that were all unremarkable and without evidence of pneumothorax. The patient's diet was advanced on postop day 1 which she tolerated well. The patient was discharged in stable condition on postop day number 1 in the afternoon. Physical Exam Const: COMMON NORMALS: no acute distress, patient oriented x3 and alert GENERAL APPEARANCE: cooperative, comfortable and well kempt O RIENTATION/CONSCIOUSNESS: Yes awake HENMT: COMMON NORMALS: normocephalic, atraumatic and hearing grossly normal bilaterally HEAD & SCALP: normocephalic and atraumatic FACE & SINUS: normal facial exam Eye: COMMON NORMALS: EOMs intact bilaterally, conjunctivae normal and no scleral icterus CONJUNCTIVA: Yes conjunctivae normal Neck/C-Spine: COMMON NORMALS: full ROM, no lymphadenopathy and Thyroid normal (The anterior neck incision is intact without erythema or swelling. ) THYROID: Thyroid normal (The anterior neck incision is intact without erythema or swelling. ) Chest: COMMONS NORMALS: normal inspection of the chest Resp: COMMON NORMALS: normal respiratory effort, No retractions and No use of accessory muscles GI: COMMON NORMALS: Normal to inspection, nondistended, normoactive bowel sounds present Neuro: COMMON NORMALS: patient oriented x3 SENSORIUM/ORIENTATION: Yes alert Psych: APPEARANCE: Yes well kempt Urinary Catheter Management: Tamayo: Cath Placed During This Visit: yes, but has since been removed by the nurse Reason for Continuing Indwelling Catheter: Decision to DC Catheter Urinary Catheter Date of Insertion: 10/31/23 Urinary Catheter Time of Insertion: 07:20 Date Urinary Catheter Removed: 11/01/23 Time Urinary Catheter Discontinued: 02:29 Discharge Data Studies Completed and Pending Completed Studies During Hospitalization Category Date Time Status CXRP [XR chest 1V portable [id number]] Q8H Exams 10/31/23 19:43 Completed CXRP [XR chest 1V portable [id number]] Q8H Exams 11/01/23 03:43 Completed CXRP [XR chest 1V portable [id number]] Q8H Exams 11/01/23 11:43 Completed CXRP [XR chest 1V portable [id number]] Stat Exams 10/31/23 10:50 Completed XR chest 1V portable [id number] Stat Exams 10/31/23 09:46 Completed Pending at discharge Category Date Time Status CXRP [XR chest 1V portable [id number]] Q8H Exams 11/01/23 19:43 Ordered CXRP [XR chest 1V portable [id number]] Q8H Exams 11/02/23 03:43 Ordered CXRP [XR chest 1V portable [id number]] Q8H Exams 11/02/23 11:43 Ordered CXRP [XR chest 1V portable [id number]] Q8H Exams 11/02/23 19:43 Ordered Pathology: Surgical [PTH] Routine Pth 10/31/23 11:12 Received Radiology Impressions Chest X-Ray 11/01/23 11:43 IMPRESSION: Stable abnormal chest as above. Interpretation of initial examination of 10/31/2023 at 9:57 a.m. was done with misinformation regarding the surgery being performed. What was construed as a partially collapsed stent obviously is a portion of the surgical sponge in the thyroidectomy bed. Laboratory Results Urine HCG, Qual Negative (Negative) 10/31/23 06:06 Procedures Performed Right hemithyroidectomy Vitals Last Vital Signs Temp 97.2 F L 11/01/23 10:00 Pulse 69 11/01/23 12:00 Resp 12 11/01/23 12:00 BP 112/79 11/01/23 12:00 Pulse Ox 93 11/01/23 12:00 O2 Del Method Room Air 11/01/23 07:51 Discharge Plan Discharge Patient Disposition: Home Condition: Stable Prescriptions: New hydrocodone-acetaminophen 5-325 mg tablet 1 tab PO Q6H Qty: 25 0RF doxycycline hyclate 100 mg capsule 100 mg PO BID 10 Days Qty: 20 0RF Continued levothyroxine 200 mcg capsule 200 mcg PO DAILY Qty: 90 1RF liothyronine [Cytomel] 5 mcg tablet 10 mcg PO DAILY Qty: 180 1RF meclizine 25 mg tablet 25 mg PO BID PRN (Reason: dizziness) Qty: 60 0RF metformin 500 mg tablet extended release 24 hr 500 mg PO DAILY Qty: 30 5RF hydroxyzine HCl 50 mg tablet 50 mg PO QID PRN (Reason: ianxiety/insomnia) Qty: 120 2RF prazosin 1 mg capsule 1 mg PO .q hs Qty: 30 2RF ferrous sulfate 27 mg iron tablet 27 mg PO DAILY meclizine 50 mg tablet 50 mg PO BID PRN (Reason: dizziness) Qty: 30 0RF nitrofurantoin monohyd/m-cryst [Macrobid] 100 mg capsule 100 mg PO BID 5 Days Qty: 10 0RF Rx Instructions: must administer with a meal/food levothyroxine 75 mcg tablet 75 mcg PO DAILY Qty: 90 0RF Rx Instructions: take with 200mcg daily total 275mcg daily meloxicam 15 mg tablet 15 mg PO DAILY Qty: 30 2RF Ozempic 0.25 mg or 0.5 mg (2 mg/3 mL) pen injector 0.5 mg SUBCUT .q week Qty: 3 1RF Rx Instructions: 0.25 mg weekly for 4 weeks then 0.5 mg weekly Discharge Orders: Discharge Order (Routine); Ordered 11/01/23 Ordered By: Inderjit Dowd Referrals: Inderjit Dowd MD [Physician] - 11/03/23 9:50 am Discharge Diet: Advance as tolerated Discharge Activity: Resume usual activity Patient Instructions: Partial Thyroidectomy (DC), Opioid Safety Activity Restrictions/Additional Instructions: - Ambulate TID - Resume all preop meds - Apply AP to the anterior neck wounds TID - F/U in Dr. Dowd's office in 48 hours - Notify Dr. Dowd for any problems - Please empty and record [facility] drain output BID Discharge Attestations Time Spent in Discharge Care*: less than 30 min Quality Metrics Clinical Quality Measures [ No reported AMI, CVA or VTE this stay] Coding Level of Care Code Acute Code for Chg Fwd Diagnoses Thyroid cancer C73
== END 2023-11-01 18:50 | disposition home or self-care (01) ==
LOC: ICU 14:33
PROVIDERS: Admitting Provider Specialist; PCP Family Medicine Adult Medicine; Visit Provider Specialist
DX: C73 Malignant neoplasm of thyroid gland (principal); E11.69 Type 2 diabetes mellitus with other specified complication; E66.01 Morbid (severe) obesity due to excess calories; Z68.42 Body mass index [BMI] 45.0-49.9, adult
CPT/HCPCS: 51702; 71045; 81025; 88307; 96374; 96376; G0378; J0171; J0690; J1100; J1200; J2250; J2270; J2405; J3010; J3490; J7030; J7120

== ENCOUNTER 2023-12-08 22:49 | Inpatient (IN) | payer MEDICARE, MEDICAID, SELFPAY ==
[2023-10-02 09:22] VITALS: BP 129/89; BMI 47.9
[2023-12-08 22:52] VITALS: BP 124/99; PULSE 102; RESP 20; TEMP 36.6; O2SAT 98; BMI 48.1
--- NOTE | 2023-12-08 23:08 | ECG_ITS ---
[facility] Test Date: 2023-12-08 Pat Name: Roro Shelton Department: Room: Gender: Female [employer]: : 1980 Requested By: Columba Giron Order Number: [id number] Ann MD: Gillian Felix M.D. Measurements Intervals [place] Rate: 95 P: 59 AL: 180 QRS: -58 QRSD: 109 T: 58 QT: 357 QTc: 450 Interpretive Statements SINUS RHYTHM LEFT AXIS DEVIATION [QRS AXIS < -30] PATTERN CONSISTENT WITH PULMONARY DISEASE Compared to ECG 09/26/2023 14:21:39 Left-axis deviation now present Incomplete right bundle-branch block no longer present Electronically Signed On 12-09-2023 13:16:10 CDT by Gillian Felix M.D. [email or web address]
[2023-12-08 23:47] LABS: Basophils % 0.3 %; Eosinophils % 0.3 %; Hematocrit 44.1 % (36-47); Lymphocytes # 1.3 10^3/uL (0.8-4.8); Lymphocytes % 18.8 %; Mean Corpuscular HGB Conc 33.1 g/dL (30-55); Mean Corpuscular Hemoglobin 27.9 pg (27-33); Mean Corpuscular Volume 84.2 fl (85-98); Mean Platelet Volume 12.2 fL (7.4-10.4); Monocytes # 0.3 10^3/uL (0.2-0.9); Monocytes % 4.8 %; Neutrophils # 5.12 10^3/uL (1.8-7.7); Neutrophils % 75.2 %; Nucleated Red Blood Cells % 0 %; Platelet Count 154 10^3/cmm (157-399); Red Blood Count 5.24 10^6/uL (3.85-5.65); Red Cell Distribution Width 13.2 % (12.1-15.1); White Blood Count 6.81 10^3/uL (3.29-11.43)
--- NOTE | 2023-12-09 00:06 | W.ED.PSYCHS ---
HPI - Psych General: Chief Complaint: Psychiatric Symptoms Stated Complaint: SI Time Seen by Provider: 12/08/23 23:08 History of Present Illness: 43-year-old female with a history of obesity, type 2 diabetes, hypothyroidism, and a history of depression who presents to the emergency room with concerns for wanting to hurt herself and not feeling safe at home. She said she got into an argument with her aunt who she lives with about finances today and she started to feel very unsafe. She wants to be admitted to get help. No specific plan. Review of Systems Narrative: Constitutional symptoms: Negative except as documented in HPI. Skin symptoms: Negative except as documented in HPI. Eye symptoms: Negative except as documented in HPI. ENMT symptoms: Negative except as documented in HPI. Respiratory symptoms: Negative except as documented in HPI. Cardiovascular symptoms: Negative except as documented in HPI. Gastrointestinal symptoms: Negative except as documented in HPI. Genitourinary symptoms: Negative except as documented in HPI. Musculoskeletal symptoms: Negative except as documented in HPI. Neurologic symptoms: Negative except as documented in HPI. Psychiatric symptoms: Negative except as documented in HPI. Endocrine symptoms: Negative except as documented in HPI. 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 H/O Desean thyroiditis Bipolar 1 disorder Post traumatic stress disorder (PTSD) delivery delivered Morbid obesity with body mass index (BMI) of 40.0 or higher Surgical History History of section X2 Family History Father Hypertension Dementia High cholesterol Stroke Mother Obesity Post traumatic stress disorder (PTSD) Cancer Thyroid disease Major depressive disorder Breast cancer Diabetes Sister Breast cancer Thyroid disease Cervical cancer Grandmother Breast cancer Diabetes Social History Smoking and tobacco/nicotine status: never used tobacco/nicotine Alcohol intake: never Substance/Drug Use: never Adopted: No Caregiver/support person: No Lives independently: Yes Household members: family Housing: House Marital status: Number of children: 3 Number of grandchildren: 0 Highest education level completed: Some College, No Degree service: No Current occupational status: disabled Pets and animals: Yes Pets & animals: cat(s) Leisure activites: music, games, reading and other Leisure activities details: walk in park Sexually active: No Do you think of yourself as: Bisexual Current gender identity: Female Katerina/Mandaen: Mu-Ism Special katerina needs: No Agree to transfusion: Yes Female Reproductive History: Para: 3 Spontaneous abortions: Yes (SAB) Physical Exam Narrative: EXAM NARRATIVE: General: Alert. no acute distress Skin: Warm, dry Head: Normocephalic, atraumatic. Neck: Supple, trachea midline. Eye: Extraocular movements are intact. Ears, nose, mouth and throat: Oral mucosa moist. Cardiovascular: Regular rate and rhythm, Normal peripheral perfusion. Respiratory: Lungs are clear to auscultation, respirations are non-labored, breath sounds are equal, Symmetrical chest wall expansion. Gastrointestinal: Soft, Nontender, Non distended, Normal bowel sounds. Musculoskeletal: Normal ROM, no deformity. Neurological: Alert and oriented to person, place, time, and situation, No focal neurological deficit observed. Psychiatric: Cooperative, depressed, expresses being afraid for herself and that she is depressed and might hurt herself h Course Vital Signs: Vital signs: Vital Signs Temperature 98 F 12/08/23 22:52 Pulse Rate 102 H 12/08/23 22:52 Respiratory Rate 20 H 12/08/23 22:52 Blood Pressure 124/99 12/08/23 22:52 Pulse Oximetry 98 12/08/23 22:52 [facility] - Psych Medical Decision Making Differential diagnosis: Patient with reported depression and suicidal ideation. concerns for infection, alcohol intoxication, cardiac issues or other medical problems prior to psychiatric admission. Workup: labwork, ekg ordered to evaluate the pathologies and to clear the patient medically prior to psychiatric admission Lab Review: Laboratory results were reviewed and interpreted by myself the emergency room physician. Lab review: - Medically cleared. - EKG shows no ischemic changes. - Blood alcohol level is negative, -Tylenol and salicylate levels are negative. - No anemia. - BUN and creatinine are within normal limits. Consultation: I spoke with Dr. Forman who is on-call for psychiatry and he agrees to admission Assessment and plan: Suicidal ideation Depression -Admission to neuropsychiatric unit for continued evaluation and treatment. - All lab work was reviewed and interpreted personally by myself, the ER physician - Evaluation and treatment of this problem were appropriate in the emergency setting Lab Data 12/08/23 23:34 12/08/23 23:34 Laboratory Results WBC 6.81 10^3/uL (3.29-11.43) 12/08/23 23:34 RBC 5.24 10^6/uL (3.85-5.65) 12/08/23 23:34 Hgb 14.60 g/dL (11.27-16.99) 12/08/23: Hct 44.1 % (36-47) 12/08/23 23: MCV 84.2 fl (85-98) L 12/08/23 23: MCH 27.9 pg (27-33) 12/08/23 23: MCHC 33.1 g/dL (30-55) 12/08/23 23:34 RDW 13.2 % (12.1-15.1) 12/08/23 23:34 Plt Count 154 10^3/cmm (157-399) L 12/08/23 23:34 MPV 12.2 fL (7.4-10.4) H 12/08/23 23:34 Neut % (Auto) 75.2 % 12/08/23 23:34 Lymph % (Auto) 18.8 % 12/08/23 23:34 Wilcox % (Auto) 4.8 % 12/08/23 23:34 Eos % (Auto) 0.3 % 12/08/23 23:34 Baso % (Auto) 0.3 % 12/08/23 23:34 Neut # (Auto) 5.12 10^3/uL (1.8-7.7) 12/08/23: Lymph # (Auto) 1.3 10^3/uL (0.8-4.8) 12/08/23 23:34 Wilcox # (Auto) 0.3 10^3/uL (0.2-0.9) 12/08/23 23:34 Eos # (Auto) 0.0 10^3/uL (0.0-0.8) 12/08/23 23:34 Baso # (Auto) 0.0 10^3/uL (0.0-0.1) 12/08/23 23:34 Nucleated RBC % (auto) 0 % 12/08/23 23:34 Nucleated RBCs # 0.0 /100WBC 12/08/23 23:34 Sodium 138 mmol/L (136-145) 12/08/23 23:34 Potassium 4.0 mmol/L (3.5-5.1) 12/08/23 23:34 Chloride 100 mmol/L (98-107) 12/08/23 23:34 Carbon Dioxide 21 mmol/L (22-29) L 12/08/23 23:34 Anion Gap 21.0 (5-19) H 12/08/23 23:34 BUN 14 mg/dL (6-20) 12/08/23 23:34 Creatinine 0.9 mg/dL (0.5-0.9) 12/08/23 23:34 GFR Calculation 68.0 mL/min (90-130) L 12/08/23 23:34 Glucose 154 mg/dL (65-115) H 12/08/23 23:34 Calculated Osmolality 290 mOsm/kg (285-295) 12/08/23 23:34 Calcium 9.6 mg/dL (8.5-10.5) 12/08/23 23:34 Total Bilirubin 0.6 mg/dL (0.15-1.2) 12/08/23 23:34 AST 24 U/L (0-32) 12/08/23 23:34 ALT 32 U/L (0-33) 12/08/23 23:34 Alkaline Phosphatase 97 U/L (35-105) 12/08/23 23:34 Total Protein 6.7 g/dL (6.6-8.7) 12/08/23 23:34 Albumin 4.5 g/dL (3.5-5.2) 12/08/23 23:34 Globulin 2.2 g/dL (1.3-4.6) 12/08/23 23:34 TSH 46.90 uIU/mL (0.27-4.20) H 12/08/23 23:34 Salicylates < 0.3 mg/dL (3-10) L 12/08/23 23:34 Acetaminophen < 5.0 ug/mL (10-30) L 12/08/23 23:34 Ethyl Alcohol < 10 mg/dL (0-10) 12/08/23 23:34 No radiology studies performed this visit Discharge Plan Discharge Patient Disposition: Admitted As Inpatient Clinical Impression: Depression, Suicidal ideation Condition: Stable Coding Level of Care Code ED Computing Services Director for Vivian Adamson
[2023-12-09 00:11] LABS: Alanine Aminotransferase 32 U/L (0-33); Albumin Level 4.5 g/dL (3.5-5.2); Alkaline Phosphatase 97 U/L (35-105); Aspartate Amino Transferase 24 U/L (0-32); Blood Urea Nitrogen 14 mg/dL (6-20); Calcium 9.6 mg/dL (8.5-10.5); Carbon Dioxide 21 mmol/L (22-29); Chloride 100 mmol/L (98-107); Creatinine Clr Calc Pharmacy 140.3626; Globulin 2.2 g/dL (1.3-4.6); Glucose 154 mg/dL (65-115); Osmolality Calculated 290 mOsm/kg (285-295); Sodium 138 mmol/L (136-145); Total Bilirubin 0.6 mg/dL (0.15-1.2); Total Protein 6.7 g/dL (6.6-8.7)
[2023-12-09 00:16] LABS: Acetaminophen < 5.0 ug/mL (10-30); Alcohol Level < 10 mg/dL (0-10); Salicylate < 0.3 mg/dL (3-10)
[2023-12-09] MEDS: pantoprazole DR 40 mg Tablet PO (01:00)
[2023-12-09 01:05] VITALS: BP 132/91; PULSE 91; RESP 18; TEMP 36.8; O2SAT 97
[2023-12-09 01:20] LABS: HCG Qualitative Urine. Negative (Negative)
[2023-12-09] MEDS: acetaminophen 325 mg Tablet 650 MG PO (01:56)
[2023-12-09] MEDS: hyDROXYzine 25 mg Capsule 50 MG PO ×3 (01:58→20:52)
[2023-12-09 02:44] LABS: Bilirubin Urine 1+ (Negative); Blood Urine Neg (Negative); Glucose Urine UA Norm (Normal); Ketones Urine 1+ (Negative); Leukocyte Esterase Urine Trace (Negative); Nitrate Urine Negative (Negative); Protein Urine Trace (Negative); Specific Gravity, Urine 1.025 (1.005-1.030); Urine Appearance Clear (CLEAR); Urine Color Yellow (Yellow); Urobilinogen Urine Neg (Negative); pH Urine 5 (5-7)
[2023-12-09 02:47] LABS: Amorphous Sediment Urine 1+ /hpf; Bacteria Urine 2+ /hpf; RBC Urine 0-4 /hpf (0-2)
[2023-12-09 03:05] LABS: Amphetamines Screen Urine Negative (Negative); Barbiturates Screen Urine Negative (Negative); Benzodiazepines Screen Urine Negative (Negative); Cocaine Screen Urine Negative (Negative); Opiate Screen Urine Negative (Negative); PCP Screen Urine Negative (Negative); THC Screen Urine Negative (Negative)
[2023-12-09 06:00] VITALS: BP 122/78; PULSE 80; RESP 16; TEMP 36.6; O2SAT 97
--- NOTE | 2023-12-09 08:58 | PC.NURSE ---
PRN Medication: Vistaril 50 mg PO given to pt for c/o anxiety. Will continue to monitor for medication effectiveness,
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
--- NOTE | 2023-12-09 09:57 | PC.NURSE ---
During assessment, patient appears anxious, rapid breathing. Patient stated that she has had seizures in the past, brought on by increased anxiety and stress; last seizure was two years aog. Patient endorses experiencing tunnel vision prior to seizure activity. When asked about suicidal ideation, patient stated, I don't want to live, but I don't have a plan. Patient reports childhood trauma and PTSD. patient verbalized understanding about notifying staff is she needed anything for anxiety. Patient said that what helps her is to not be alone, to have somebody sit near her in silence while she works through it is beneficial.
[2023-12-09] MEDS: OLANZapine 5 mg ODT PO (10:35)
[2023-12-09] MEDS: metformin XR 500 MG Tablet PO (11:58)
[2023-12-09 14:00] VITALS: BP 104/67; PULSE 78; RESP 18; TEMP 36.8; O2SAT 96
[2023-12-09] MEDS: ibuprofen 600 mg Tablet PO (15:29)
[2023-12-09] MEDS: duloxetine 30 MG, duloxetine 60 MG 90 MG PO (16:19)
[2023-12-09] MEDS: BuSPIRONE 10 mg Tablet PO (17:56)
[2023-12-09 19:43] VITALS: BP 95/70; PULSE 80; RESP 16; TEMP 36.8; O2SAT 97
[2023-12-09] MEDS: prazosin 1 mg Capsule PO (20:51)
[2023-12-10] MEDS: levothyroxine 75 mcg Tablet PO (05:46)
[2023-12-10] MEDS: levothyroxine 100 mcg Tablet 200 MCG PO (05:46)
[2023-12-10 06:00] VITALS: BP 101/67; PULSE 94; RESP 18; TEMP 37.2; O2SAT 95
[2023-12-10] MEDS: metformin XR 500 MG Tablet PO (08:58)
[2023-12-10] MEDS: BuSPIRONE 10 mg Tablet PO ×2 (08:58→17:58)
[2023-12-10] MEDS: duloxetine 30 MG, duloxetine 60 MG 90 MG PO (08:58)
[2023-12-10] MEDS: ibuprofen 600 mg Tablet PO (12:38)
[2023-12-10 14:00] VITALS: BP 133/80; PULSE 118; RESP 20; TEMP 37.5; O2SAT 96
--- NOTE | 2023-12-10 15:54 | PC.NURSE ---
Patient wanting to notify Dr. Forman of some issues:patient has a couple of painful sores inside of mouth, painful and have been present for 1 week. Patient has a rash behind her right ear, tinnitus in right ear. Patient has chronic shoulder pain, neck pain for a couple of years. This nurse made Dr. Forman aware of patient complaints.
[2023-12-10] MEDS: ferrous sulfate EC 325 mg Tablet PO (18:38)
--- NOTE | 2023-12-10 18:46 | P.NPUPN_ITS ---
Subjective NPU 2 Subjective: Patient presented today reporting that she is doing better. She reports that is probably in part due to getting sleep and being out of a very contentious environment. She denies any problems with the medications being restarted. She denied any side effects of the medication. We discussed continuing go work with the social work team when they return tomorrow about discharge logistics. Mental Status Exam 2 MSE Comments: This is a morbidly obese white female in hospital scrubs with limited grooming and eye contact. No abnormal movements except for psychomotor retardation. Cooperative with exam in mild to moderate distress. Speech was normal rate and slightly decreased volume. Mood described as depressed and anxious, affect congruent and slightly subdued. Thought process linear. Thought content: Patient endorsed suicidal or but denied homicidal ideation, there were no delusions reported or noted, she denied auditory or visual hallucinations. The patient has a history of suicidal ideation, with an attempt at age 14. She has self-injurious behavior, such as clipping her toenails until they bleed. She struggles with anxiety and has experienced paranoia and hallucinations while on certain medications. She has a history of mood instability and difficulty expressing her emotions in a healthy way. She reports feeling emotionally exhausted and empty at the time of the consultation, but denies current suicidal or violent thoughts. Attention and concentration were intact and memory was mostly reliable but none were formally tested. She is alert and oriented x 3. Insight and judgment are limited and impulse control is limited. Intellectual ability is limited versus impaired. Vitals/I&O/Wt Last Vital Signs Temp 99.5 F 12/10/23 14:00 Pulse 118 H 12/10/23 14:00 Resp 20 H 12/10/23 14:00 BP 133/80 12/10/23 14:00 Pulse Ox 96 12/10/23 14:00 O2 Del Method Room Air 12/10/23 14:00 Weight last 48 hrs Weight 167.829 kg Data NPU 12/08/23 23:34 12/08/23 23:34 A&P Assessment and plan (1) Post traumatic stress disorder (PTSD): (2) Generalized anxiety disorder: (3) Major depressive disorder, recurrent severe without psychotic features: (4) Suicidal ideation: (5) Hypothyroidism (acquired): (6) Multiple thyroid nodules: (7) Type 2 diabetes mellitus with morbid obesity: (8) Morbid obesity with body mass index (BMI) of 40.0 or higher: Plan This is a 43-year-old white female with a long history of mental health and addiction issues who presents reporting she is struggling with major depressive disorder and PTSD, with possible borderline personality disorder. She has a history of opiate addiction and is currently using cannabis. She has difficulty managing her emotions and has a history of self-injurious behavior. She has lost custody of her children and is currently 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 due to her mental health issues. 1. Encourage individual, group and milieu therapy. 2. Recommend sober living treatment at the highest level of care to which the patient is willing to commit. 3. Continue q-15 minute checks for safety.? 4.? Continue current medications. Including BuSpar 10 mg p.o. twice daily and Cymbalta with increased to 90 mg daily and consider mood stabilizer. 5.?Will attempt to gather collateral information. Involuntary Hold Information 2 96 Hour Hold: 96 Hour Involuntary Admission: No Attestations NPU 2 Medical Necessity Statement*: Inpatient hospitalization is medically necessary and the clinically appropriate intervention at this time. We will monitor and adjust medications as indicated. Her likely length of stay 3-5 days. Coding Level of Care Code Acute Code for Chg Fwd Diagnoses Post traumatic stress disorder (PTSD) F43.10 Generalized anxiety disorder F41.1 Major depressive disorder, recurrent severe without psychotic features F33.2 Suicidal ideation R45.851 Hypothyroidism (acquired) E03.9 Multiple thyroid nodules E04.2 Type 2 diabetes mellitus with morbid obesity E11.69; E66.01 Morbid obesity with body mass index (BMI) of 40.0 or higher E66.01
[2023-12-10] MEDS: trazodone 50 mg Tablet PO (20:37)
[2023-12-10] MEDS: prazosin 1 mg Capsule PO (20:37)
[2023-12-10 21:51] VITALS: BP 127/72; PULSE 81; RESP 18; TEMP 37.4; O2SAT 98
[2023-12-11] MEDS: ibuprofen 600 mg Tablet PO ×3 (01:37→16:59)
[2023-12-11] MEDS: OLANZapine 5 mg ODT PO (03:27)
[2023-12-11] MEDS: hyDROXYzine 25 mg Capsule 50 MG PO (04:47)
[2023-12-11] MEDS: levothyroxine 75 mcg Tablet PO (04:47)
[2023-12-11] MEDS: levothyroxine 100 mcg Tablet 200 MCG PO (04:47)
[2023-12-11 06:00] VITALS: BP 98/66; PULSE 73; RESP 18; TEMP 37.1; O2SAT 95
--- NOTE | 2023-12-11 08:29 | PC.NURSE ---
IN BED RESTING, AROUSES TO VOICE. RATES PAIN IN BACK 12/05, SPEECH LANGUAGE THERAPIST TO GIVE PRN MEDICATIONS ORDERED. PT STATES SHE WAS NOT ABLE TO SLEEP WELL LAST NIGHT DUE TO WAKING UP AT 2AM HAVING RACING THOUGHTS AND VERY PARANOID, PT STATED THE NURSE GAVE HER SOME MEDICATIONS BUT ONLY THE SECOND THING THEY GAVE ME WORKED. RATES ANXIETY 08/05 AND DEPRESSION 12/05. PT STATES SHE HAS NOT HAD A BM FOR 4 DAYS, SO THIS RN RECEIVED ORDERS FROM DR. NAGY TO GIVE SENNA S ONE TAB PO BID PRN CONSTIPATION. PT STATES GOAL FOR THE DAY IS TO MAKE SOME PHONE CALLS GET MY STUFF TOGETHER SO I KNOW WHERE I'M GOING TO GO WHEN I LEAVE HERE. ALL QUESTIONS WERE ANSWERED AND SUPPORT WAS VOICED. PT IS NOTED TO HAVE SOME PARANOIA AND GUARDED WITH STAFF.
[2023-12-11] MEDS: sennosides-docusate Tablet 1 TAB PO (08:37)
[2023-12-11] MEDS: ferrous sulfate EC 325 mg Tablet PO (08:37)
[2023-12-11] MEDS: metformin XR 500 MG Tablet PO (08:37)
[2023-12-11] MEDS: BuSPIRONE 10 mg Tablet PO ×2 (08:37→21:09)
[2023-12-11] MEDS: duloxetine 30 MG, duloxetine 60 MG 90 MG PO (08:37)
--- NOTE | 2023-12-11 08:38 | PC.NURSE ---
prn Senna 1 tablet given po per pt c/o constipation
--- NOTE | 2023-12-11 10:24 | PC.OT ---
OT EVALUATION ATTEMPTED; PATIENT SLEEPING SOUNDLY/SNORING AND DOES NOT AWAKEN.
[2023-12-11 14:00] VITALS: BP 111/70; PULSE 76; RESP 16; TEMP 37.2; O2SAT 97
--- NOTE | 2023-12-11 15:00 | P.NPUPN_ITS ---
Subjective NPU 2 Subjective: Patient presented today reporting that she is feeling significant benefit from being here. She reports that just having the time away from a very stressful and exhausting setting has been helpful. She reports that she has had the chance to work with the social work team today and start looking at what outpatient resources exist and what outpatient follow-up might look like. She reports that she does feel a little better but does not feel she totally ready for discharge which we discussed that the treatment team agreed that it was not time for discharge. Otherwise she denies any side effects to medications and reports she is sleeping much better. Mental Status Exam 2 MSE Comments: This is a morbidly obese white female in hospital scrubs with limited grooming and eye contact. No abnormal movements except for psychomotor retardation. Cooperative with exam in mild to moderate distress. Speech was normal rate and slightly decreased volume. Mood described as maybe a little better, affect congruent and slightly subdued. Thought process linear. Thought content: Patient denied suicidal or homicidal ideation, there were no delusions reported or noted, she denied auditory or visual hallucinations. The patient has a history of suicidal ideation, with an attempt at age 14. She has self-injurious behavior, such as clipping her toenails until they bleed. She struggles with anxiety and has experienced paranoia and hallucinations while on certain medications. She has a history of mood instability and difficulty expressing her emotions in a healthy way. Attention and concentration were intact and memory was mostly reliable but none were formally tested. She is alert and oriented x 3. Insight and judgment are limited and impulse control is limited. Intellectual ability is limited versus impaired. Vitals/I&O/Wt Last Vital Signs Temp 98.7 F 12/11/23 06:00 Pulse 73 12/11/23 06:00 Resp 18 12/11/23 06:00 BP 98/66 12/11/23 06:00 Pulse Ox 95 12/11/23 06:00 O2 Del Method Room Air 12/11/23 06:00 Weight last 48 hrs Weight 167.829 kg Data NPU 12/08/23 23:34 12/08/23 23:34 A&P Assessment and plan (1) Post traumatic stress disorder (PTSD): (2) Generalized anxiety disorder: (3) Major depressive disorder, recurrent severe without psychotic features: (4) Suicidal ideation: (5) Hypothyroidism (acquired): (6) Multiple thyroid nodules: (7) Type 2 diabetes mellitus with morbid obesity: (8) Morbid obesity with body mass index (BMI) of 40.0 or higher: Plan This is a 43-year-old white female with a long history of mental health and addiction issues who presents reporting she is struggling with major depressive disorder and PTSD, with possible borderline personality disorder. She has a history of opiate addiction and is currently using cannabis. She has difficulty managing her emotions and has a history of self-injurious behavior. She has lost custody of her children and is currently 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 due to her mental health issues. 1. Encourage individual, group and milieu therapy. 2. Recommend sober living treatment at the highest level of care to which the patient is willing to commit. 3. Continue q-15 minute checks for safety.? 4.? Continue current medications. Including BuSpar 10 mg p.o. twice daily and Cymbalta with increased to 90 mg daily and consider mood stabilizer. 5.?Will attempt to gather collateral information. Involuntary Hold Information 2 96 Hour Hold: 96 Hour Involuntary Admission: No Attestations NPU 2 Medical Necessity Statement*: Inpatient hospitalization is medically necessary and the clinically appropriate intervention at this time. We will monitor and adjust medications as indicated. Her likely length of stay 2-4 days. Coding Level of Care Code Acute Code for g Fwd Diagnoses Post traumatic stress disorder (PTSD) F43.10 Generalized anxiety disorder F41.1 Major depressive disorder, recurrent severe without psychotic features F33.2 Suicidal ideation R45.851 Hypothyroidism (acquired) E03.9 Multiple thyroid nodules E04.2 Type 2 diabetes mellitus with morbid obesity E11.69; E66.01 Morbid obesity with body mass index (BMI) of 40.0 or higher E66.01
[2023-12-11] MEDS: trazodone 50 mg Tablet PO (21:10)
[2023-12-11] MEDS: prazosin 1 mg Capsule PO (21:10)
[2023-12-11 22:00] VITALS: BP 154/95; PULSE 83; RESP 18; TEMP 37.3; O2SAT 96
[2023-12-12] MEDS: ibuprofen 600 mg Tablet PO (03:24)
[2023-12-12] MEDS: OLANZapine 5 mg ODT PO ×2 (03:53→21:29)
[2023-12-12 06:00] VITALS: BP 112/70; PULSE 70; RESP 16; TEMP 36.9; O2SAT 95
[2023-12-12] MEDS: levothyroxine 75 mcg Tablet PO (06:23)
[2023-12-12] MEDS: levothyroxine 100 mcg Tablet 200 MCG PO (06:23)
[2023-12-12] MEDS: metformin XR 500 MG Tablet PO (08:35)
[2023-12-12] MEDS: duloxetine 30 MG, duloxetine 60 MG 90 MG PO (08:35)
[2023-12-12] MEDS: ferrous sulfate EC 325 mg Tablet PO (08:35)
[2023-12-12] MEDS: BuSPIRONE 10 mg Tablet PO ×2 (08:35→21:29)
[2023-12-12 14:00] VITALS: BP 132/79; PULSE 70; RESP 17; TEMP 37.2; O2SAT 97
[2023-12-12] MEDS: sennosides-docusate Tablet 1 TAB PO (14:36)
--- NOTE | 2023-12-12 15:14 | W.PM.NPUPNS ---
Subjective NPU Subjective: Patient presented today reporting that she is feeling a little better. She reports that she is having some decrease in anxiety as her aunt reported that she would be open to her return home ultimately. She reported an idea that she probably needs to still consider finding an alternative living arrangement but knowing that that option still exist take some stress off of her. She denies any side effects to the medication. Mental Status Exam MSE Comments: This is a morbidly obese white female in hospital scrubs with limited grooming and eye contact. No abnormal movements except for psychomotor retardation. Cooperative with exam in mild to moderate distress. Speech was normal rate and slightly decreased volume. Mood described as a little better, affect congruent and slightly subdued. Thought process linear. Thought content: Patient denied suicidal or homicidal ideation, there were no delusions reported or noted, she denied auditory or visual hallucinations. The patient has a history of suicidal ideation, with an attempt at age 14. She has self-injurious behavior, such as clipping her toenails until they bleed. She struggles with anxiety and has experienced paranoia and hallucinations while on certain medications. She has a history of mood instability and difficulty expressing her emotions in a healthy way. Attention and concentration were intact and memory was mostly reliable but none were formally tested. She is alert and oriented x 3. Insight and judgment are limited and impulse control is limited. Intellectual ability is limited versus impaired. Vitals/I&O/Wt Last Vital Signs Temp 98.9 F 12/12/23 14:00 Pulse 70 12/12/23 14:00 Resp 17 12/12/23 14:00 BP 132/79 12/12/23 14:00 Pulse Ox 97 12/12/23 14:00 O2 Del Method Room Air 12/12/23 06:00 Data NPU 12/08/23 23:34 12/08/23 23:34 A&P Assessment and plan (1) Post traumatic stress disorder (PTSD): (2) Generalized anxiety disorder: (3) Major depressive disorder, recurrent severe without psychotic features: (4) Suicidal ideation: (5) Hypothyroidism (acquired): (6) Multiple thyroid nodules: (7) Type 2 diabetes mellitus with morbid obesity: (8) Morbid obesity with body mass index (BMI) of 40.0 or higher: Plan This is a 43-year-old white female with a long history of mental health and addiction issues who presents reporting she is struggling with major depressive disorder and PTSD, with possible borderline personality disorder. She has a history of opiate addiction and is currently using cannabis. She has difficulty managing her emotions and has a history of self-injurious behavior. She has lost custody of her children and is currently 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 due to her mental health issues. 1. Encourage individual, group and milieu therapy. 2. Recommend sober living treatment at the highest level of care to which the patient is willing to commit. 3. Continue q-15 minute checks for safety.? 4.? Continue current medications. Including BuSpar 10 mg p.o. twice daily and Cymbalta with increased to 90 mg daily and consider mood stabilizer. 5.?Will attempt to gather collateral information. Involuntary Hold Information 96 Hour Hold: 96 Hour Involuntary Admission: No Attestations NPU Medical Necessity Statement*: Inpatient hospitalization is medically necessary and the clinically appropriate intervention at this time. We will monitor and adjust medications as indicated. Her likely length of stay 1-3 days. Coding Level of Care Code Acute Code for [facility] Diagnoses Post traumatic stress disorder (PTSD) F43.10 Generalized anxiety disorder F41.1 Major depressive disorder, recurrent severe without psychotic features F33.2 Suicidal ideation R45.851 Hypothyroidism (acquired) E03.9 Multiple thyroid nodules E04.2 Type 2 diabetes mellitus with morbid obesity E11.69; E66.01 Morbid obesity with body mass index (BMI) of 40.0 or higher E66.01
[2023-12-12 20:39] VITALS: BP 136/96; PULSE 99; RESP 18; TEMP 38; O2SAT 97
[2023-12-12] MEDS: prazosin 1 mg Capsule PO (21:29)
[2023-12-12] MEDS: acetaminophen 325 mg Tablet 650 MG PO (21:29)
[2023-12-12] MEDS: trazodone 50 mg Tablet PO (21:29)
[2023-12-13] MEDS: ibuprofen 600 mg Tablet PO ×3 (04:20→21:25)
[2023-12-13 06:00] VITALS: BP 114/72; PULSE 67; RESP 17; TEMP 36.8; O2SAT 95
[2023-12-13] MEDS: levothyroxine 100 mcg Tablet 200 MCG PO (06:23)
[2023-12-13] MEDS: levothyroxine 75 mcg Tablet PO (06:23)
[2023-12-13] MEDS: duloxetine 30 MG, duloxetine 60 MG 90 MG PO (08:40)
[2023-12-13] MEDS: acetaminophen 325 mg Tablet 650 MG PO (08:40)
[2023-12-13] MEDS: ferrous sulfate EC 325 mg Tablet PO (08:40)
[2023-12-13] MEDS: OLANZapine 5 mg ODT PO ×2 (08:40→21:25)
[2023-12-13] MEDS: metformin XR 500 MG Tablet PO (08:40)
[2023-12-13] MEDS: BuSPIRONE 10 mg Tablet PO ×2 (08:40→21:26)
--- NOTE | 2023-12-13 09:14 | PC.NURSE ---
Addendum entered by Isabelle Rodriguez RN 12/13/23 11:12: PT ENDORSES ANXIETY MEDICATION RELIEVED HER SYMPTOMS OF ANXIETY. PT ENDORSED THAT AFTER RECEIVING THE TYLENOL HER PAIN WAS RELIEVED AT THE TIME. PT CURRENT NEEDS ARE MET AT THIS TIME. Original Note: PT REQUESTED MEDICATION TO RELIEVE ANXIETY. PT STATED THAT THE VISTARIL DID NOT HELP. PT WAS OFFERED PRN OLANZAPINE WHICH SHE AGREED TOO. PT ALSO REQUESTED PRN PAIN RELIEVER FOR 6/10 LOWER BACK AND LEG PAIN ONE A 0-10 SCALE WHERE 0 IS NONE AND 10 IS THE WORST POSSIBLE. THIS NURSE ADMINISTERED TYLENOL 650MG PO AND OLANZAPINE 5MG PO.
--- NOTE | 2023-12-13 09:21 | PC.NURSE ---
RESTING IN BED READING A BOOK IN NO ACUTE DISTRESS. PT DENIES HI AND AVH AT THIS TIME. CONTINUES TO ENDORSE SUICIDAL THOUGHTS WITH NO ACTIVE PLAN. PT DOES CONTRACT FOR SAFETY AT THIS TIME. RATES ANXIETY 08/05 AND DEPRESSION 10/05. PT DOES REQUEST ANTI-ANXIETY MEDS AT THIS TIME, RN TO GIVE WHEN AM MEDS ARE GIVEN. PT REPORTS BACK PAIN 11/05 MED NURSE TO GIVE PRN MEDICATION. PT REPORTS SHE SLEPT OK I JUST KEEP WAKING UP AT 400 AM BECAUSE OF MY PAIN, THEN I HAVE TO TAKE SOMETHING THEN GO BACK TO BED. PT IS NOTED TO BE SOMATIC AND MAKES SEVERAL COMPLAINTS, REQUESTING TO SEE A MEDICAL DR. PTS NEEDS CONTINUE TO BE ADDRESSED THEY ARISE. ALL QUESTIONS ANSWERED AND SUPPORT VOICED.
--- NOTE | 2023-12-13 11:10 | PC.NURSE ---
Addendum entered by Isabelle Rodriguez RN 12/13/23 11:55: UPON RE-ASSESSMENT PT STATES THAT SHE IS NO LONGER IN PAIN AND THAT THE MEDICATION WAS EFFECTIVE. Original Note: PT CAME TO NURSE AND REQUEST PAIN MEDICATION FOR LOWER BACK PAIN RATING IT A 10/10 ON A 0-10 SCALE WHERE 0 IS NONE AND 10 IS THE WORST POSSIBLE. THIS NURSE ADMINISTERED PRN IBUPROFEN PO.
[2023-12-13 14:00] VITALS: BP 110/72; PULSE 87; RESP 15; TEMP 37.2; O2SAT 95
--- NOTE | 2023-12-13 16:05 | P.NPUPN_ITS ---
Subjective NPU 2 Subjective: Patient presented today reporting that she is feeling a little better. She reports that she has not talked to her aunt today but they are in conversation and she is feeling optimistic that they will be able to work this out and that she would be able to return to her home even if she will need to work on possible changes to her living arrangement at some point soon. She denies any side effects to the medication and we discussed the possibility of increasing her BuSpar to 3 times daily from the twice daily dosing. We discussed the likelihood of discharge in the next 48 hours. Mental Status Exam 2 MSE Comments: This is a morbidly obese white female in hospital scrubs with limited grooming and eye contact. No abnormal movements except for psychomotor retardation. Cooperative with exam in mild to moderate distress. Speech was normal rate and slightly decreased volume. Mood described as a little better, affect congruent and slightly subdued. Thought process linear. Thought content: Patient denied suicidal or homicidal ideation, there were no delusions reported or noted, she denied auditory or visual hallucinations. The patient has a history of suicidal ideation, with an attempt at age 14. She has self-injurious behavior, such as clipping her toenails until they bleed. She struggles with anxiety and has experienced paranoia and hallucinations while on certain medications. She has a history of mood instability and difficulty expressing her emotions in a healthy way. Attention and concentration were intact and memory was mostly reliable but none were formally tested. She is alert and oriented x 3. Insight and judgment are limited and impulse control is limited. Intellectual ability is limited versus impaired. Vitals/I&O/Wt Last Vital Signs Temp 99.0 F 12/13/23 14:00 Pulse 87 12/13/23 14:00 Resp 15 12/13/23 14:00 BP 110/72 12/13/23 14:00 Pulse Ox 95 12/13/23 14:00 O2 Del Method Room Air 12/13/23 06:00 Data NPU 12/08/23 23:34 12/08/23 23:34 A&P Assessment and plan (1) Post traumatic stress disorder (PTSD): (2) Generalized anxiety disorder: (3) Major depressive disorder, recurrent severe without psychotic features: (4) Suicidal ideation: (5) Hypothyroidism (acquired): (6) Multiple thyroid nodules: (7) Type 2 diabetes mellitus with morbid obesity: (8) Morbid obesity with body mass index (BMI) of 40.0 or higher: Plan This is a 43-year-old white female with a long history of mental health and addiction issues who presents reporting she is struggling with major depressive disorder and PTSD, with possible borderline personality disorder. She has a history of opiate addiction and is currently using cannabis. She has difficulty managing her emotions and has a history of self-injurious behavior. She has lost custody of her children and is currently 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 due to her mental health issues. 1. Encourage individual, group and milieu therapy. 2. Recommend sober living treatment at the highest level of care to which the patient is willing to commit. 3. Continue q-15 minute checks for safety.? 4.? Continue current medications. Including BuSpar 10 mg p.o. twice daily and consider increasing that to 3 times daily and Cymbalta with increased to 90 mg daily and consider mood stabilizer. 5.?Will attempt to gather collateral information. Involuntary Hold Information 2 96 Hour Hold: 96 Hour Involuntary Admission: No Attestations NPU 2 Medical Necessity Statement*: Inpatient hospitalization is medically necessary and the clinically appropriate intervention at this time. We will monitor and adjust medications as indicated. Her likely length of stay 1-2 days. Coding Level of Care Code Acute Code for g Fwd Diagnoses Post traumatic stress disorder (PTSD) F43.10 Generalized anxiety disorder F41.1 Major depressive disorder, recurrent severe without psychotic features F33.2 Suicidal ideation R45.851 Hypothyroidism (acquired) E03.9 Multiple thyroid nodules E04.2 Type 2 diabetes mellitus with morbid obesity E11.69; E66.01 Morbid obesity with body mass index (BMI) of 40.0 or higher E66.01
[2023-12-13 19:40] VITALS: BP 106/71; PULSE 79; RESP 19; TEMP 37.4; O2SAT 96
[2023-12-13] MEDS: prazosin 1 mg Capsule PO (21:25)
[2023-12-13] MEDS: trazodone 50 mg Tablet PO (21:26)
[2023-12-13] MEDS: hyDROXYzine 25 mg Capsule 50 MG PO (21:26)
[2023-12-14] MEDS: acetaminophen 325 mg Tablet 650 MG PO (02:25)
[2023-12-14] MEDS: trazodone 50 mg Tablet PO ×2 (02:25→20:57)
[2023-12-14] MEDS: levothyroxine 100 mcg Tablet 200 MCG PO (05:41)
[2023-12-14] MEDS: levothyroxine 75 mcg Tablet PO (05:42)
[2023-12-14 06:00] VITALS: BP 99/65; PULSE 82; RESP 18; TEMP 37.1; O2SAT 95
[2023-12-14] MEDS: sennosides-docusate Tablet 1 TAB PO (08:34)
[2023-12-14] MEDS: ibuprofen 600 mg Tablet PO (08:34)
[2023-12-14] MEDS: BuSPIRONE 10 mg Tablet PO ×2 (08:34→20:57)
[2023-12-14] MEDS: ferrous sulfate EC 325 mg Tablet PO (08:34)
[2023-12-14] MEDS: duloxetine 30 MG, duloxetine 60 MG 90 MG PO (08:34)
[2023-12-14] MEDS: cetylpyridinium Lozenge 1 EACH MUCOUS MEM (08:34)
[2023-12-14] MEDS: metformin XR 500 MG Tablet PO (08:35)
[2023-12-14] MEDS: hyDROXYzine 25 mg Capsule 50 MG PO ×2 (09:40→23:03)
--- NOTE | 2023-12-14 10:05 | PC.NURSE ---
IN HALLWAY. DENIES SI/HI AND AVH AT THIS TIME. RATES BACK PAIN 8/10, MED NURSE TO GIVE PRN TYLENOL OR IBUPROFEN FOR PAIN. RATES ANXIETY 5/10 AND DEPRESSION 4/10. PT STATES HER GOAL TODAY IS TO GET AHOLD OF MY AUNT OR FINE A RIDE WHEN I DISCHARGE. PT CONTINUES TO HAVE SOMATIC BEHAVIORS AND HAVE MULIPLE COMPLAINTS. PT REPORTS SHE DID NOT SLEEP GOOD DUE TO ROOM MATE YELLING. ALL QUESTIONS ANSWERED AND SUPPORT VOICED.
[2023-12-14 14:00] VITALS: BP 147/82; PULSE 82; RESP 20; TEMP 36.6; O2SAT 98
--- NOTE | 2023-12-14 14:36 | P.NPUPN_ITS ---
Subjective NPU 2 Subjective: Patient presented today reporting that she is feeling better. She reports that she has continued to talk to her aunt and is feeling optimistic that they will be able to work this out and that she can return to her home even if she will need to work on possible changes to her living arrangement at some point in the future. She denies any side effects to the medication and we discussed increasing her BuSpar to 3 times daily from the twice daily dosing. We discussed the likelihood of discharge tomorrow. Mental Status Exam 2 MSE Comments: This is a morbidly obese white female in hospital scrubs with limited grooming and eye contact. No abnormal movements except for psychomotor retardation. Cooperative with exam in mild distress. Speech was normal rate and slightly decreased volume. Mood described as better, affect congruent. Thought process linear. Thought content: Patient denied suicidal or homicidal ideation, there were no delusions reported or noted, she denied auditory or visual hallucinations. Attention and concentration were intact and memory was mostly reliable but none were formally tested. She is alert and oriented x 3. Insight and judgment are limited and impulse control is limited. Intellectual ability is limited versus impaired. Vitals/I&O/Wt Last Vital Signs Temp 98.8 F 12/14/23 06:00 Pulse 82 12/14/23 06:00 Resp 18 12/14/23 06:00 BP 99/65 12/14/23 06:00 Pulse Ox 95 12/14/23 06:00 O2 Del Method Room Air 12/14/23 06:00 Data NPU 12/08/23 23:34 12/08/23 23:34 A&P Assessment and plan (1) Post traumatic stress disorder (PTSD): (2) Generalized anxiety disorder: (3) Major depressive disorder, recurrent severe without psychotic features: (4) Suicidal ideation: (5) Hypothyroidism (acquired): (6) Multiple thyroid nodules: (7) Type 2 diabetes mellitus with morbid obesity: (8) Morbid obesity with body mass index (BMI) of 40.0 or higher: Plan This is a 43-year-old white female with a long history of mental health and addiction issues who presents reporting she is struggling with major depressive disorder and PTSD, with possible borderline personality disorder. She has a history of opiate addiction and is currently using cannabis. She has difficulty managing her emotions and has a history of self-injurious behavior. She has lost custody of her children and is currently 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 due to her mental health issues. 1. Encourage individual, group and milieu therapy. 2. Recommend sober living treatment at the highest level of care to which the patient is willing to commit. 3. Continue q-15 minute checks for safety.? 4.? Continue current medications. Including BuSpar 10 mg p.o. twice daily and increase that to 3 times daily and Cymbalta with increased to 90 mg daily and consider mood stabilizer. 5.?Will attempt to gather collateral information. Involuntary Hold Information 2 96 Hour Hold: 96 Hour Involuntary Admission: No Attestations NPU 2 Medical Necessity Statement*: Inpatient hospitalization is medically necessary and the clinically appropriate intervention at this time. We will monitor and adjust medications as indicated. Her likely length of stay 1-2 days. Coding Level of Care Code Acute Code for g Fwd Diagnoses Post traumatic stress disorder (PTSD) F43.10 Generalized anxiety disorder F41.1 Major depressive disorder, recurrent severe without psychotic features F33.2 Suicidal ideation R45.851 Hypothyroidism (acquired) E03.9 Multiple thyroid nodules E04.2 Type 2 diabetes mellitus with morbid obesity E11.69; E66.01 Morbid obesity with body mass index (BMI) of 40.0 or higher E66.01
[2023-12-14 20:54] VITALS: BP 96/64; PULSE 81; RESP 18; TEMP 36.8; O2SAT 95
[2023-12-14] MEDS: prazosin 1 mg Capsule PO (20:57)
[2023-12-15] MEDS: diphenhydrAMINE 50 mg Capsule PO (01:32)
--- NOTE | 2023-12-15 01:33 | PC.NURSE ---
Patient given 50 mg po benadryl for airborne allergies.
[2023-12-15] MEDS: ibuprofen 600 mg Tablet PO (03:22)
[2023-12-15] MEDS: levothyroxine 75 mcg Tablet PO (05:52)
[2023-12-15] MEDS: levothyroxine 100 mcg Tablet 200 MCG PO (05:53)
[2023-12-15 06:00] VITALS: BP 128/84; PULSE 74; RESP 20; TEMP 36.9; O2SAT 99
--- NOTE | 2023-12-15 09:41 | W.PM.NPUDCS ---
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 No abnormal movements except for psychomotor retardation. Cooperative with exam in mild distress. Speech was normal rate and slightly decreased volume. Mood described as better, affect congruent. Thought process linear. Thought content: Patient denied suicidal or homicidal ideation, there were no delusions reported or noted, she denied auditory or visual hallucinations. Attention and concentration were intact and memory was mostly reliable but none were formally tested. She is alert and oriented x 3. Insight and judgment are limited and impulse control is limited. Intellectual ability is limited versus impaired. Discharge Data Studies Completed and Pending: Laboratory Results WBC 6.81 10^3/uL (3.2 9-11.43) 12/08/23 23:34 RBC 5.24 10^6/uL (3.8 5-5.65) 12/08/23 23:34 Hgb 14.60 g/dL (11.27 -16.99) 12/08/23 23:34 Hct 44.1 % (36-47) 12/08/23 23:34 MCV 84.2 fl (85-98) L 12/08/23 23:34 MCH 27.9 pg (27-33) 12/08/23 23:34 MCHC 33.1 g/dL (30-55) 12/08/23 23:34 RDW 13.2 % (12.1-15.1 ) 12/08/23 23:34 Plt Count 154 10^3/cmm (157 -399) L 12/08/23 23:34 MPV 12.2 fL (7.4-10.4 ) H 12/08/23 23:34 Neut % (Auto) 75.2 % 12/08/23 23:34 Lymph % (Auto) 18.8 % 12/08/23 23:34 [place] % (Auto) 4.8 % 12/08/23 23:34 Eos % (Auto) 0.3 % 12/08/23 23:34 Baso % (Auto) 0.3 % 12/08/23 23:34 Neut # (Auto) 5.12 10^3/uL (1.8 -7.7) 12/08/23 23:34 Lymph # (Auto) 1.3 10^3/uL (0.8- 4.8) 12/08/23 23:34 [place] # (Auto) 0.3 10^3/uL (0.2- 0.9) 12/08/23 23:34 Eos # (Auto) 0.0 10^3/uL (0.0- 0.8) 12/08/23 23:34 Baso # (Auto) 0.0 10^3/uL (0.0- 0.1) 12/08/23 23:34 Nucleated RBC % (a uto) 0 % 12/08/23 23: Nucleated RBCs # 0.0 /100WBC 12/08/23 23:34 Sodium 138 mmol/L (136-1 45) 12/08/23 23:34 Potassium 4.0 mmol/L (3.5-5 .1) 12/08/23 23:34 Chloride 100 mmol/L (98-10 7) 12/08/23 23:34 Carbon Dioxide 21 mmol/L (22-29) L 12/08/23 23:34 Anion Gap 21.0 (5-19) H 12/08/23 23:34 BUN 14 mg/dL (6-20) 12/08/23 23:34 Creatinine 0.9 mg/dL (0.5-0. 9) 12/08/23 23:34 GFR Calculation 68.0 mL/min (90-1 30) L 12/08/23 23:34 Glucose 154 mg/dL (65-115 ) H 12/08/23 23:34 Calculated Osmolal ity 290 mOsm/kg (285- 295) 12/08/23 23:34 Calcium 9.6 mg/dL (8.5-10 .5) 12/08/23 23:34 Total Bilirubin 0.6 mg/dL (0.15-1 .2) 12/08/23 23:34 AST 24 U/L (0-32) 12/08/23 23:34 ALT 32 U/L (0-33) 12/08/23 23:34 Alkaline Phosphata se 97 U/L (35-105) 12/08/23 23:34 Total Protein 6.7 g/dL (6.6-8.7 ) 12/08/23 23:34 Albumin 4.5 g/dL (3.5-5.2 ) 12/08/23 23:34 Globulin 2.2 g/dL (1.3-4.6 ) 12/08/23 23:34 TSH 46.90 uIU/mL (0.2 7-4.20) H 12/08/23 23:34 HCG, Qual Negative (Negati ve) 12/08/23 23:09 Urine Color Yellow (Yellow) 12/09/23 01:09 Urine Appearance Clear (CLEAR) 12/09/23 01:09 Urine pH 5 (5-7) 12/09/23 01:09 Ur Specific Gravit y 1.025 (1.005-1.0 30) 12/09/23 01:09 Urine Protein Trace (Negative) 12/09/23 01:09 Urine Glucose (UA) Norm (Normal) 12/09/23 01:09 Urine Ketones 1+ (Negative) H 12/09/23 01:09 Urine Blood Neg (Negative) 12/09/23 01:09 Urine Nitrate Negative (Negati ve) 12/09/23 01:09 Urine Bilirubin 1+ (Negative) H 12/09/23 01:09 Urine Urobilinogen Neg mg/dL (Negati ve) 12/09/23 01:09 Ur Leukocyte Marli ase Trace (Negative) H 12/09/23 01:09 Urine RBC 0-4 /hpf (0-2) H 12/09/23 01:09 Urine WBC 5-10 /hpf (0-5) H 12/09/23 01:09 Ur Squamous Epith Cells 5-10 /hpf (0-5) H 12/09/23 01:09 Calcium Oxalate Cr ystal 10-15 /hpf H 12/09/23 01:09 Amorphous Sediment 1+ /hpf 12/09/23 01:09 Urine Bacteria 2+ /hpf (NONE) H 12/09/23 01:09 Salicylates < 0.3 mg/dL (3-10 ) L 12/08/23 23:34 Urine Opiates Scre en Negative ng/mL (N egative) 12/09/23 01:09 Acetaminophen < 5.0 ug/mL (10-3 0) L 12/08/23 23:34 Ur Barbiturates Sc reen Negative ng/mL (N egative) 12/09/23 01:09 Ur Phencyclidine S crn Negative ng/mL (N egative) 12/09/23 01:09 Ur Amphetamines Sc reen Negative ng/mL (N egative) 12/09/23 01:09 U Benzodiazepines Scrn Negative ng/mL (N egative) 12/09/23 01:09 Urine Cocaine Scre en Negative ng/mL (N egative) 12/09/23 01:09 U Marijuana (THC) Screen Negative ng/mL (N egative) 12/09/23 01:09 Ethyl Alcohol < 10 mg/dL (0-10) 12/08/23 23:34 Vitals: Last Vital Signs Temp 98.4 F 12/15/23 06:00 Pulse 74 12/15/23 06:00 Resp 20 H 12/15/23 06:00 BP 128/84 12/15/23 06:00 Pulse Ox 99 12/15/23 06:00 O2 Del Method Room Air 12/15/23 06:00 Discharge Plan Discharge Patient Disposition: Home Condition: Stable Prescriptions: New trazodone 50 mg Tablet 50 mg PO BEDTIME PRN (Reason: Sleep) 30 Days Qty: 30 1RF buspirone 10 mg Tablet 10 mg PO TID 30 Days Qty: 90 1RF hydroxyzine pamoate 25 mg Capsule 50 mg PO Q6H PRN (Reason: Anxiety) 30 Days Qty: 120 1RF duloxetine 30 mg Capsule,Delayed Release(Dr/Ec) 90 mg PO DAILY 30 Days Qty: 90 1RF Continued levothyroxine 200 mcg capsule 200 mcg PO DAILY Qty: 90 1RF metformin 500 mg tablet extended release 24 hr 500 mg PO DAILY Qty: 30 5RF prazosin 1 mg capsule 1 mg PO .q hs Qty: 30 2RF ferrous sulfate 27 mg iron tablet 27 mg PO DAILY levothyroxine 75 mcg tablet 75 mcg PO DAILY Qty: 90 0RF Rx Instructions: take with 200mcg daily total 275mcg daily Discharge Orders: Discharge Order (Routine); Ordered 12/15/23 Ordered By: Zach Forman Referrals: Miguel Ángel Davis MD [Primary Care Provider] - Davi Han MD [Physician] - Discharge Diet: Regular Discharge Activity: Resume usual activity Patient Instructions: Opioid Safety Discharge Attestations NPU Time Spent in Discharge Care*: less than 30 min Specific Discharge Activities: Specific discharge activities: educating patient, discussing with case management associate/social workers/dc planners, documenting/other paperwork and evaluating patient/reviewing data Coding Level of Care Code Acute Code for Chg Fwd Diagnoses Post traumatic stress disorder (PTSD) F43.10 Generalized anxiety disorder F41.1 Major depressive disorder, recurrent severe without psychotic features F33.2 Suicidal ideation R45.851 Hypothyroidism (acquired) E03.9 Multiple thyroid nodules E04.2 Type 2 diabetes mellitus with morbid obesity E11.69; E66.01 Morbid obesity with body mass index (BMI) of 40.0 or higher E66.01
[2023-12-15] MEDS: BuSPIRONE 10 mg Tablet PO (09:46)
[2023-12-15] MEDS: duloxetine 30 MG, duloxetine 60 MG 90 MG PO (09:46)
[2023-12-15] MEDS: metformin XR 500 MG Tablet PO (09:47)
[2023-12-15] MEDS: ferrous sulfate EC 325 mg Tablet PO (09:47)
[2023-12-15 09:49] VITALS: BP 128/84; PULSE 74; RESP 20; TEMP 36.9; O2SAT 99
--- NOTE | 2023-12-15 10:06 | DCPLANNER ---
IMM completed 12/15/2023. Pt was given a copy of her rights.
== END 2023-12-15 11:46 | disposition home or self-care (01) | DRG 882 ==
LOC: ER 12-09 00:26 → NP 12-09 00:58
PROVIDERS: Admitting Provider Psychiatry & Neurology Psychiatry; Emergency Provider Emergency Medicine; PCP Family Medicine Adult Medicine; Visit Provider Psychiatry & Neurology Psychiatry
DX: F43.10 Post-traumatic stress disorder, unspecified (principal); R45.851 Suicidal ideations; Z68.41 Body mass index [BMI] 40.0-44.9, adult; F41.1 Generalized anxiety disorder; E06.3 Autoimmune thyroiditis; E11.8 Type 2 diabetes mellitus with unspecified complications; Z79.84 Long term (current) use of oral hypoglycemic drugs; Z79.85 Long-term (current) use of injectable non-insulin antidiabetic drugs; E66.01 Morbid (severe) obesity due to excess calories; Z91.51 Personal history of suicidal behavior; F11.11 Opioid abuse, in remission; Z63.8 Other specified problems related to primary support group
CPT/HCPCS: 36415; 80053; 80306; 80307; 81001; 81025; 84443; 85025; 93005; 97150; 97165; 99285; Q0163

== ENCOUNTER 2024-01-31 15:09 | Outpatient (CLI) | payer MEDICARE, MEDICAID, SELFPAY ==
[2023-10-02 09:22] VITALS: BP 129/89; BMI 47.9
[2024-01-31 16:29] LABS: Free T4 Free Thyroxine 1.19 ng/dL (0.82-1.77); Thyroid Stimulating Hormone 9.66 uIU/mL (0.27-4.20)
[2024-02-01 08:15] LABS: T3 Total 133 ng/dL (76-181)
== END 2024-01-31 15:10 | disposition home or self-care (01) ==
LOC: LAB 15:13
PROVIDERS: PCP Family Medicine Adult Medicine; Visit Provider Internal Medicine
DX: E03.9 Hypothyroidism, unspecified (principal)
CPT/HCPCS: 36415; 84439; 84443; 84480

== ENCOUNTER 2024-04-18 13:04 | Outpatient (CLI) | payer MEDICARE, SELFPAY ==
[2023-10-02 09:22] VITALS: BP 129/89; BMI 47.9
[2024-04-18] MEDS: iohexol 350 mg/mL 500 mL Btl (per mL) IV (13:44)
--- NOTE | 2024-04-18 15:30 | CT_ITS ---
WS: [id number] CT NECK TECHNIQUE: Contrast-enhanced CT of the neck with coronal and sagittal reformatted images. CLINICAL INFORMATION: E04.2 - Nontoxic multinodular goiter COMPARISON: 03/30/2023. DLP: 1048.[address] scans at [facility] use at least one of these dose optimization techniques: automated e xposure control; mA and/or kV adjustment per patient size (includes targeted exams where dose is matc hed to clinical indication); or iterative reconstruction. FINDINGS: Marker placed in the area of concern LEFT neck. Normal underlying platysma. Normal underlyi ng sternocleidomastoid. External jugular vein in this area. No suspicious underlying lesions in the a roxana of palpable concern. Previously described RIGHT substernal thyroid nodule has been resected in the interval. Surgical clip s RIGHT thyroid bed. Nodular LEFT thyroid is similar in appearance compared to the prior examinations . Paranasal sinuses are well aerated. Mastoid air cells are well aerated. Parotid glands are normal. No rmal submandibular glands. Normal posterior nasopharynx. Normal parapharyngeal fat. No cervical lymph adenopathy. No evidence supraglottic or glottic mass. Normal subglottic airway. Mild cervical curve. Calcified granuloma RIGHT upper lobe.. CT/CT neck w con* [id number] IMPRESSION: 1. Previously described RIGHT substernal thyroid nodule has been resected in the interval. Surgical clips RIGHT thyroid bed. 2. Nodular LEFT thyroid is similar in appearance compared to the prior examina tions. Dominant LEFT thyroid nodule appears progressed measuring 2.2 cm. This c an be further evaluated with ultrasound. 3. No cervical lymphadenopathy. 4. Normal salivary glands.
--- NOTE | 2024-04-18 16:00 | CT_ITS ---
WS: [id number] CT CHEST TECHNIQUE: Contrast enhanced CT of the chest with coronal and sagittal reformatted images. CLINICAL INFORMATION: R91.1 - Solitary pulmonary nodule COMPARISON: CT chest 03/31/2023 DLP: 1048.[address] scans at [facility] use at least one of these dose optimization techniques: automated e xposure control; mA and/or kV adjustment per patient size (includes targeted exams where dose is matc hed to clinical indication); or iterative reconstruction. FINDINGS: Previously described 6 mm nodule LEFT lower lobe laterally has decreased in size with a small residua l nodule measuring 4 mm. Calcified granuloma RIGHT upper lobe.No other suspicious pulmonary parenchym al abnormalities. Normal caliber thoracic aorta. No mediastinal or hilar lymphadenopathy. No axillary lymphadenopathy. Diffuse fatty infiltration of the liver. Small esophageal hiatal hernia. Splenic granulomas. Postoperative changes RIGHT thyroidectomy with surgical clips in the RIGHT thyroid bed. Nodular LEFT thyroid with increasing LEFT thyroid nodule. Recommend further evaluation with thyroid ultrasound. CT/CT chest w con* [id number] IMPRESSION: 1. Postoperative changes RIGHT thyroidectomy with surgical clips in the RIGHT thyroid bed. 2. Nodular LEFT thyroid with increasing LEFT thyroid nodule. Recommend further evaluation with thyroid ultrasound. 3. Previously described 6 mm nodule LEFT lower lobe laterally has decreased in size with a small residual nodule measuring 4 mm
== END 2024-04-18 13:05 | disposition home or self-care (01) ==
LOC: RAD 13:07
PROVIDERS: PCP Family Medicine Adult Medicine; Visit Provider Family Medicine
DX: R91.1 Solitary pulmonary nodule (principal); E04.2 Nontoxic multinodular goiter; J84.10 Pulmonary fibrosis, unspecified; K76.0 Fatty (change of) liver, not elsewhere classified; K44.9 Diaphragmatic hernia without obstruction or gangrene; D73.89 Other diseases of spleen
CPT/HCPCS: 70491; 71260

== ENCOUNTER 2024-04-19 00:24 | Emergency (ER) | payer MEDICARE, SELFPAY ==
[2023-10-02 09:22] VITALS: BP 129/89; BMI 47.9
[2024-04-19 00:28] VITALS: BP 134/90; PULSE 110; RESP 18; TEMP 37.2; O2SAT 96; BMI 48.0
--- NOTE | 2024-04-19 00:36 | XRR_ITS ---
PROCEDURE INFORMATION: Exam: XR Left Shoulder Exam date and time: 04/19/2024 12:53 AM Age: 44 years old Clinical indication: Injury or trauma; Fall; Blunt trauma (contusions or hematomas); Shoulder; Left; Additional info: Fall pain TECHNIQUE: Imaging protocol: Radiologic exam of the left shoulder. Views: 2 or more views. COMPARISON: CT chest w con* [id number] 04/18/2024 1:35 PM FINDINGS: Bones/joints: No acute fracture or dislocation. Glenohumeral DJD. Soft tissues: Unremarkable. XR/XR shoulder LT min 2V* [id number] IMPRESSION: No acute bony findings.
--- NOTE | 2024-04-19 00:36 | XRR_ITS ---
PROCEDURE INFORMATION: Exam: XR Left Knee Exam date and time: 04/19/2024 12:49 AM Age: 44 years old Clinical indication: Injury or trauma; Fall; Blunt trauma; Knee; Left; Additional info: Fall pain TECHNIQUE: Imaging protocol: Radiologic exam of the left knee. Views: 3 views. COMPARISON: No relevant prior studies available. FINDINGS: Bones/joints: No acute fracture or dislocation. Soft tissues: Unremarkable. XR/XR knee LT 3V* [id number] IMPRESSION: No acute bony findings.
--- NOTE | 2024-04-19 00:47 | W.ED.FALL ---
HPI - Fall General: Chief Complaint: Fall Stated Complaint: Fall left knee left shoulder Time Seen by Provider: 04/19/24 00:30 History of Present Illness: Patient presents to the ER with complaints of left knee and left shoulder pain. After fall 2 days ago. She states she already had pain in these areas before the fall because she failed back in May. She had now the pain is worse. She denies hitting her head or loss of consciousness. Related Data Home Medications Medication Instructions Recorded Confirmed ferrous sulfate 27 mg iron tablet 27 mg PO DAILY 05/18/23 03/15/24 Previous Rx's Medication Instructions Recorded metformin 500 mg tablet,extended 500 mg PO DAILY diabetes #30 tabs 08/11/23 release 24 hr levothyroxine 75 mcg tablet 75 mcg PO DAILY #90 tabs 08/15/23 hydroxyzine pamoate 25 mg capsule 50 mg (2 x 25 mg) PO Q6H PRN 12/15/23 Anxiety 30 days #120 caps semaglutide 0.25 mg or 0.5 mg (2 0.5 mg (0.736 mL) SUBCUT .q week 02/15/24 mg/3 mL) subcutaneous pen injector #3 mL ([employer]) cyclobenzaprine 5 mg tablet 5 mg PO BID PRN muscle spasm #15 02/27/24 tabs duloxetine 60 mg capsule,delayed 60 mg PO DAILY #30 caps 03/07/24 release prazosin 1 mg capsule 1 mg PO .q hs #30 caps 03/07/24 trazodone 50 mg tablet 100 mg (2 x 50 mg) PO BEDTIME PRN 03/07/24 Sleep 30 days #60 tabs levothyroxine 200 mcg tablet See Rx Instructions .Route 04/18/24 .COMPLEX #90 tabs diclofenac sodium 75 mg 75 mg PO BID PRN pain #20 tabs 04/19/24 tablet,delayed release Allergies Allergy/AdvReac Type Severity Reaction Status Date / Time zolpidem [From Ambien] Allergy Unknown ADR-Halluci Verified 03/15/24 15:30 nating lorazepam [From Ativan] AdvReac ADR-Halluci Verified 03/15/24 15:30 nating prednisone AdvReac ADR-Agitate Verified 03/15/24 15:30 d Review of Systems General: Reports: 10 or more systems reviewed and unremarkable except in HPI and below PFSH ED PFSH: Medical History Depression Irregular menstrual bleeding Type 2 diabetes mellitus with morbid obesity Orthostatic hypotension Multiple thyroid nodules 01/06/23 US nodule, Neck/Chest CT 03/30/23 nodule 2.7 x 2.6 cm in mediastinal Chronic dislocation of left shoulder Psychiatric care 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 H/O Desean thyroiditis Bipolar 1 disorder Post traumatic stress disorder (PTSD) delivery delivered Morbid obesity with body mass index (BMI) of 40.0 or higher Surgical History History of section X2 Family History Father Hypertension Dementia High cholesterol Stroke Mother Obesity Post traumatic stress disorder (PTSD) Cancer Thyroid disease Major depressive disorder Breast cancer Diabetes Sister Breast cancer Thyroid disease Cervical cancer Grandmother Breast cancer Diabetes Social History Smoking and tobacco/nicotine status: unknown if used tobacco/nicotine Alcohol intake: never Substance/Drug Use: never Adopted: No Caregiver/support person: No Lives independently: Yes Household members: family Housing: House Marital status: Number of children: 3 Number of grandchildren: 0 Highest education level completed: Some College, No Degree service: No Current occupational status: disabled Pets and animals: Yes Pets & animals: cat(s) Leisure activites: music, games, reading and other Leisure activities details: walk in park Sexually active: No Do you think of yourself as: Bisexual Current gender identity: Female Katerina/Holiness: Cheondoism Special katerina needs: No Agree to transfusion: Yes Female Reproductive History: Para: 3 Spontaneous abortions: Yes (SAB) Physical Exam Const: COMMON NORMALS: no acute distress, average body habitus, patient oriented x3, no limitations, healthy appearing, alert and well nourished HENMT: COMMON NORMALS: normocephalic, atraumatic, hearing grossly normal bilaterally, external ears normal, Normal external nose present and moist oral mucous membranes HEAD & SCALP: normocephalic and atraumatic NOSE: Normal external nose present EXTERNAL EAR: Yes external ears normal Neck/C-Spine: COMMON NORMALS: no JVD Chest: COMMONS NORMALS: normal inspection of the chest and normal palpation of entire chest wall Resp: COMMON NORMALS: normal respiratory effort, No retractions, No use of accessory muscles and clear to auscultation bilaterally AUSCULTATION: clear to auscultation bilaterally Cardio: COMMON NORMALS: no JVD, regular rate, regular rhythm, S1 normal heart sound present, S2 normal heart sound present, No gallops present (Cardio), No clicks present (Cardio), No murmurs present (Cardio) and No rub (Cardio) RATE: regular rate RHYTHM: regular rhythm HEART SOUNDS: S1 normal heart sound present and S2 normal heart sound present GI: COMMON NORMALS: Normal to inspection, nondistended, normoactive bowel sounds present, Soft to palpation, non-tender, No hepatosplenomegaly present and no masses PALPATION: Yes Soft to palpation and Yes No hepatosplenomegaly present Extremity: NARRATIVE EXTREMITY EXAM: Tenderness with palpation over left anterior shoulder joint no crepitus deformity Neuro: COMMON NORMALS: patient oriented x3 SENSORIUM/ORIENTATION: Yes alert Course Vital Signs: Vital signs: Vital Signs Temperature 98.9 F 04/19/24 00:28 Pulse Rate 87 04/19/24 02:01 Respiratory Rate 16 04/19/24 02:01 Blood Pressure 112/69 04/19/24 02:01 Pulse Oximetry 94 04/19/24 02:01 Oxygen Delivery Me thod Room Air 04/19/24 00:28 MDM - Fall Medical Decision Making Patient had x-rays of her left shoulder and left knee, no acute abnormalities were found. Patient be discharged home. Medical Records I reviewed the patient's medical records. Lab Data I reviewed the patient's lab results. Radiology Impressions Knee X-Ray 04/19/24 00:36 IMPRESSION: No acute bony findings. Shoulder X-Ray 04/19/24 00:36 IMPRESSION: No acute bony findings. All radiology interpretation(s) finalized by discharge Discharge Plan Discharge Patient Disposition: Home Clinical Impression: Acute pain of left shoulder, Acute pain of left knee Fall Qualifiers: Encounter type: initial encounter Qualified Code(s): W19.XXXA - Unspecified fall, initial encounter Condition: Stable Prescriptions: New diclofenac sodium 75 mg tablet,delayed release (DR/EC) 75 mg PO BID PRN (Reason: pain) Qty: 20 0RF No Action metformin 500 mg tablet extended release 24 hr 500 mg PO DAILY Qty: 30 5RF ferrous sulfate 27 mg iron tablet 27 mg PO DAILY duloxetine 60 mg capsule,delayed release(DR/EC) 60 mg PO DAILY Qty: 30 2RF trazodone 50 mg tablet 100 mg PO BEDTIME PRN (Reason: Sleep) 30 Days Qty: 60 2RF prazosin 1 mg capsule 1 mg PO .q hs Qty: 30 2RF cyclobenzaprine 5 mg tablet 5 mg PO BID PRN (Reason: muscle spasm) Qty: 15 0RF levothyroxine 75 mcg tablet 75 mcg PO DAILY Qty: 90 0RF Rx Instructions: take with 200mcg daily total 275mcg daily Ozempic 0.25 mg or 0.5 mg (2 mg/3 mL) pen injector 0.5 mg SUBCUT .q week Qty: 3 1RF Rx Instructions: 0.5 mg weekly levothyroxine 200 mcg tablet See Rx Instructions .ROUTE .COMPLEX Qty: 90 1RF Dose Instruction: TAKE ONE CAPSULE BY MOUTH DAILY Rx Instructions: TAKE ONE CAPSULE BY MOUTH DAILY hydroxyzine pamoate 25 mg Capsule 50 mg PO Q6H PRN (Reason: Anxiety) 30 Days Qty: 120 1RF Discharge Orders: Discharge ED (Routine); Ordered 04/19/24 Ordered By: Isma Ramirez Referrals: Miguel Ángel Davis MD [Primary Care Provider] - 1 week Patient Instructions: Musculoskeletal Pain (ED) Activity Restrictions/Additional Instructions: Your x-rays were read by the radiologist as no acute abnormality this means no bony abnormality or fracture. You may just have contusions and strains in these areas. Please take the medicine as prescribed it was sent into your pharmacy. Please follow-up with your family doc within the next 7 to 10 days for further evaluation and treatment. Coding Level of Care Code ED Director Of User Experience for Vivian Adamson
[2024-04-19 01:00] VITALS: BP 100/66; PULSE 94; RESP 16; O2SAT 96
[2024-04-19 02:01] VITALS: BP 112/69; PULSE 87; RESP 16; O2SAT 94
[2024-04-19 02:49] VITALS: BP 118/74; PULSE 87; RESP 16; O2SAT 94
== END 2024-04-19 02:54 | disposition home or self-care (01) ==
PROVIDERS: Emergency Provider Emergency Medicine; PCP Family Medicine Adult Medicine
DX: M25.562 Pain in left knee (principal); M25.512 Pain in left shoulder; W19.XXXA Unspecified fall, initial encounter; Z79.84 Long term (current) use of oral hypoglycemic drugs; E11.9 Type 2 diabetes mellitus without complications
CPT/HCPCS: 73030; 73562; 99284

== ENCOUNTER → 2024-05-23 15:59 | Outpatient (BNVA) | payer MEDICARE, SELFPAY ==
[2023-10-02 09:22] VITALS: BP 129/89; BMI 47.9
== END ==
PROVIDERS: PCP Family Medicine Adult Medicine; Visit Provider Psychiatry & Neurology Psychiatry
DX: E66.01 Morbid (severe) obesity due to excess calories (principal); E11.69 Type 2 diabetes mellitus with other specified complication
CPT/HCPCS: 80061; 83036

== ENCOUNTER 2024-06-12 08:09 | Outpatient (CLI) | payer MEDICARE, MEDICAID, SELFPAY ==
[2024-05-27 10:20] VITALS: BP 134/79
[2024-05-27 10:23] VITALS: BMI 46.7
--- NOTE | 2024-06-12 08:19 | CT_ITS ---
WS: [id number] CT NECK TECHNIQUE: Contrast-enhanced CT of the neck with coronal and sagittal reformatted images. CLINICAL INFORMATION: OTHER DYSPHAGIA COMPARISON: 04/18/2024 DLP: 272.[address] scans at [facility] use at least one of these dose optimization techniques: automated e xposure control; mA and/or kV adjustment per patient size (includes targeted exams where dose is matc hed to clinical indication); or iterative reconstruction. FINDINGS: Mastoid air cells and paranasal sinuses are well aerated. Normal posterior nasopharynx. Nor mal parapharyngeal fat. No evidence of supraglottic or glottic mass. Normal subglottic airway. Paroti d glands are normal. Normal submandibular glands. Tongue base appears normal. No cervical lymphadenopathy. Surgical clips RIGHT thyroid bed. Nodular LEFT thyroid is similar in [place] to previous. Dominant LEFT thyroid nodule measures 2.2 cm and appears stable. Calcified granu alyssa RIGHT upper lobe. CT/CT neck w con* [id number] IMPRESSION: 1. Normal salivary glands. 2. No evidence supraglottic or glottic mass. Normal subglottic airway. 3. Surgical clips RIGHT thyroid bed. Stable nodular LEFT thyroid. 4. No cervical lymphadenopathy.
[2024-06-12] MEDS: iohexol 350 mg/mL 500 mL Btl (per mL) IV (08:40)
== END 2024-06-12 08:10 | disposition home or self-care (01) ==
LOC: RAD 08:12
PROVIDERS: PCP Family Medicine Adult Medicine; Visit Provider Specialist
DX: E04.2 Nontoxic multinodular goiter (principal); R13.19 Other dysphagia; R93.89 Abnormal findings on diagnostic imaging of other specified body structures
CPT/HCPCS: 70491

== ENCOUNTER 2024-06-28 07:39 | Outpatient (CLI) | payer MEDICARE, MEDICAID, SELFPAY ==
[2024-05-27 10:20] VITALS: BP 134/79
[2024-05-27 10:23] VITALS: BMI 46.7
--- NOTE | 2024-06-28 | FL_ITS ---
Exam: FL barium swallow [id number] Date/Time of Exam: 06/28/2024 8:05 AM Reason For Exam: Nontoxic multinodular goiter, other dysphagia Fluoroscopy time: 2 minutes Oropharyngeal phase of swallowing was normal. The esophagus is smooth in contour. No indication of esophageal mass or stricture. Normal motility. No hiatal hernia or reflux identified. The esophagus is not displaced. IMPRESSION: 1. Unremarkable esophagram. # of spot films: 4 MTDD
== END 2024-06-28 07:40 | disposition home or self-care (01) ==
LOC: RAD 07:42
PROVIDERS: PCP Family Medicine Adult Medicine; Visit Provider Specialist
DX: E04.2 Nontoxic multinodular goiter (principal); R13.19 Other dysphagia; R05.9 Cough, unspecified; R30.0 Dysuria
CPT/HCPCS: 74220; 81000; 87400

== ENCOUNTER 2024-07-08 07:31 | Emergency (ER) | payer MEDICARE, SELFPAY ==
[2024-05-27 10:20] VITALS: BP 134/79
[2024-05-27 10:23] VITALS: BMI 46.7
[2024-07-08 07:32] VITALS: BP 131/90; PULSE 85; RESP 16; TEMP 37.2; O2SAT 94; BMI 47.0
--- NOTE | 2024-07-08 07:55 | W.ED.ALLEREA ---
HPI - Allergic Reaction General: Chief complaint: Allergic Reaction Stated complaint: allergic reaction x3 days Time Seen by Provider: 07/08/24 07:48 History of Present Illness: HPI narrative: 44-year-old female presents emergency room with urticaria. She finished a course of Bactrim for a bladder infection that she started 1 week ago her last dose was yesterday the last 3 days she has had an urticarial rash she has tried Benadryl [id number] the rash is wax and wane during that time she denies any difficulty breathing. Associated symptoms: Deny abdominal pain Related Data Home Medications ?Medication ?Instructions ?Recorded ?Confirmed ferrous sulfate 27 mg iron tablet 27 mg PO DAILY 05/18/23 07/08/24 hydroxyzine HCl 50 mg tablet 50 mg PO QID PRN Anxiety 07/08/24 07/08/24 levothyroxine 300 mcg tablet 300 mcg PO DAILY 07/08/24 07/08/24 liothyronine 5 mcg tablet 5 mcg PO DAILY 07/08/24 07/08/24 mupirocin 2 % topical ointment 1 applic topical TID PRN Skin 07/08/24 07/08/24 Irritation ondansetron 8 mg disintegrating 8 mg PO TID PRN Nausea 07/08/24 07/08/24 tablet prazosin 1 mg capsule 1 mg PO BEDTIME 07/08/24 07/08/24 Previous Rx's ?Medication ?Instructions ?Recorded metformin 500 mg tablet,extended 500 mg PO DAILY diabetes #30 tabs 08/11/23 release 24 hr duloxetine 60 mg capsule,delayed 60 mg PO DAILY #30 caps 06/13/24 release trazodone 50 mg tablet 100 mg (2 x 50 mg) PO BEDTIME PRN 06/13/24 Sleep 30 days #60 tabs sulfamethoxazole 800 1 tab PO BID 10 days #20 tabs 06/28/24 mg-trimethoprim 160 mg tablet (Bactrim DS) cetirizine 10 mg tablet 10 mg PO BID #20 tabs 07/08/24 methylprednisolone 4 mg tablets in See Rx Instructions PO .COMPLEX 07/08/24 a dose pack (Medrol (Robb)) #21 ea Allergies Allergy/AdvReac Type Severity Reaction Status Date / Time zolpidem (From Ambien) Allergy Unknown ADR-Halluci Verified 07/04/24 15:04 nating lorazepam (From Ativan) AdvReac ADR-Halluci Verified 07/04/24 15:04 nating prednisone AdvReac ADR-Agitate Verified 07/04/24 15:04 d Review of Systems Const: Denies: fever(s) or chills Card: Denies: chest pain Resp: Denies: dyspnea GI: Denies: abdominal pain : Denies: dysuria, urinary frequency or urinary urgency Musc: Denies: neck pain or back pain Skin/Breast: Reports: rash, pruritus and erythema PFSH ED PFSH: Medical History Prediabetes Left hip pain Low back pain with left-sided sciatica Depression Irregular menstrual bleeding Orthostatic hypotension Multiple thyroid nodules 01/06/23 US nodule, Neck/Chest CT 03/30/23 nodule 2.7 x 2.6 cm in mediastinal Chronic dislocation of left shoulder Psychiatric care 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 H/O Desean thyroiditis Bipolar 1 disorder Post traumatic stress disorder (PTSD) Morbid obesity with body mass index (BMI) of 40.0 or higher Surgical History Hx of partial thyroidectomy done for thyroid nodules History of section X2 Family History Father Hypertension Dementia High cholesterol Stroke Mother Obesity Post traumatic stress disorder (PTSD) Cancer Thyroid disease Major depressive disorder Breast cancer Diabetes Sister Breast cancer Thyroid disease Cervical cancer Grandmother Breast cancer Diabetes Social History Smoking and tobacco/nicotine status: never used tobacco/nicotine Alcohol intake: never Substance/Drug Use: former Former substance use 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 Adopted: No Caregiver/support person: No Lives independently: Yes Household members: other Details: living in [facility] right now Marital status: Number of children: 3 Number of grandchildren: 0 Highest education level completed: High School Graduate service: No Current occupational status: disabled Previous occupational history: 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 for psych; 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 Pets and animals: Yes Pets & animals: cat(s) Leisure activites: games and reading Sexually active: No Do you think of yourself as: Bisexual Current gender identity: Female Katerina/Yarsanism: Restorationism Special katerina needs: No Agree to transfusion: Yes Female Reproductive History: Para: 3 Spontaneous abortions: Yes (SAB) Physical Exam Const: COMMON NORMALS: no acute distress GENERAL APPEARANCE: cooperative and comfortable ORIENTATION/CONSCIOUSNESS: Yes awake, Yes oriented to person, Yes oriented to place and Yes oriented to time HENMT: COMMON NORMALS: normocephalic, atraumatic and hearing grossly normal bilaterally HEAD & SCALP: normocephalic and atraumatic Resp: COMMON NORMALS: normal respiratory effort, No retractions, No use of accessory muscles and clear to auscultation bilaterally AUSCULTATION: clear to auscultation bilaterally Cardio: COMMON NORMALS: regular rate, regular rhythm and No murmurs present (Cardio) RATE: regular rate RHYTHM: regular rhythm Extremity: COMMON NORMALS: normal to inspection, capillary refill normal, no clubbing, cyanosis or edema, no calf tenderness and no pedal edema Neuro: SENSORIUM/ORIENTATION: Yes oriented to person, Yes oriented to place and Yes oriented to time Skin: OTHER: Urticarial rash about the torso. No vesicles. Course Vital Signs: Vital signs: Vital Signs Temperature 98.9 F 07/08/24 07:32 Pulse Rate 85 07/08/24 07:32 Respiratory Rate 16 07/08/24 07:32 Blood Pressure 131/90 07/08/24 07:32 Pulse Oximetry 94 07/08/24 07:32 Oxygen Delivery Me thod Room Air 07/08/24 07:32 MDM - Allergic Reaction Medical Decision Making Likely reaction to the Bactrim. She is already completed the course of the antibiotic. She is no longer having urinary tract symptoms at this time. Will give her a single IM dose of dexamethasone and then start her on an oral steroid taper along with cetirizine 10 mg twice daily. Discussed with the patient that the rash will likely wax and wane over the next couple of days follow-up with her primary care doctor as needed Medical Records I reviewed the patient's medical records. Lab Data I reviewed the patient's lab results. No radiology studies performed this visit Discharge Plan Discharge Patient Disposition: Home Clinical Impression: Allergic reaction to sulfonamide, Cystitis Condition: Stable Prescriptions: New methylprednisolone [Medrol (Robb)] 4 mg tablets,dose pack See Rx Instructions .ROUTE .COMPLEX Qty: 21 0RF Rx Instructions: orally per package directions cetirizine 10 mg tablet 10 mg PO BID Qty: 20 0RF No Action metformin 500 mg tablet extended release 24 hr 500 mg PO DAILY Qty: 30 5RF sulfamethoxazole-trimethoprim [Bactrim DS] 800-160 mg tablet 1 tab PO BID 10 Days Qty: 20 0RF ferrous sulfate 27 mg iron tablet 27 mg PO DAILY duloxetine 60 mg capsule,delayed release(DR/EC) 60 mg PO DAILY Qty: 30 2RF trazodone 50 mg tablet 100 mg PO BEDTIME PRN (Reason: Sleep) 30 Days Qty: 60 2RF levothyroxine 300 mcg tablet 300 mcg PO DAILY hydroxyzine HCl 50 mg tablet 50 mg PO QID PRN (Reason: Anxiety) liothyronine 5 mcg tablet 5 mcg PO DAILY ondansetron 8 mg tablet,disintegrating 8 mg PO TID PRN (Reason: Nausea) mupirocin 2 % ointment 1 applic TOPICAL TID PRN (Reason: Skin Irritation) prazosin 1 mg capsule 1 mg PO BEDTIME Discharge Orders: Discharge ED (Routine); Ordered 07/08/24 Ordered By: Alexx Aragon Referrals: Ghada Briscoe MD [Primary Care Provider] - Discharge Diet: Usual diet Discharge Activity: Increase activity as tolerated Patient Instructions: Allergic Reaction, Urinary Tract Infection in Women (ED), Urticaria (ED), Opioid Safety, Pain Management Activity Restrictions/Additional Instructions: Thank you for choosing [facility] for your healthcare needs today. It is very important that you follow up as instructed or that you return to the Emergency Department should you have concerns or if your condition changes or worsens in any way. You are seen in the emergency room for an allergic reaction. You are given a single dose of steroid. Start oral steroid taper tomorrow. Use cetirizine 10 mg 1 tablet twice a day until the rash resolves. It is likely that this rash will wax and wane over the next week. Print Language: Georgian Coding Level of Care Code ED Infusion Therapy Nurse for Vivian Adamson
[2024-07-08] MEDS: dexamethasone 10 mg/mL INJ IM (08:18)
[2024-07-08 08:33] VITALS: BP 114/88; PULSE 79; O2SAT 93
== END 2024-07-08 08:35 | disposition home or self-care (01) ==
PROVIDERS: Emergency Provider Family Medicine; PCP Family Medicine
DX: N30.90 Cystitis, unspecified without hematuria (principal); T37.0X5A Adverse effect of sulfonamides, initial encounter; X58.XXXA Exposure to other specified factors, initial encounter; Z79.84 Long term (current) use of oral hypoglycemic drugs
CPT/HCPCS: 96372; 99284; J1100

== ENCOUNTER → 2024-07-11 12:18 | Outpatient (BNVA) | payer MEDICARE, SELFPAY ==
[2024-05-27 10:20] VITALS: BP 134/79
[2024-05-27 10:23] VITALS: BMI 46.7
== END ==
PROVIDERS: Visit Provider Student in an Organized Health Care Education/Training Program
DX: Z12.11 Encounter for screening for malignant neoplasm of colon (principal); R03.0 Elevated blood-pressure reading, without diagnosis of hypertension
CPT/HCPCS: 99204

== ENCOUNTER 2024-07-24 08:34 | Outpatient (CLI) | payer MEDICARE, SELFPAY ==
[2024-05-27 10:20] VITALS: BP 134/79
[2024-05-27 10:23] VITALS: BMI 46.7
[2024-07-24 09:21] LABS: Free T4 Free Thyroxine 0.47 ng/dL (0.82-1.77)
[2024-07-25 05:20] LABS: T3 Total 87 ng/dL (76-181)
== END 2024-07-24 08:35 | disposition home or self-care (01) ==
LOC: LAB 08:37
PROVIDERS: PCP Family Medicine; Visit Provider Internal Medicine
DX: E03.9 Hypothyroidism, unspecified (principal)
CPT/HCPCS: 36415; 84439; 84443; 84480

== ENCOUNTER 2024-07-24 08:47 | Outpatient (RCR) | payer MEDICARE, SELFPAY ==
[2024-05-27 10:20] VITALS: BP 134/79
[2024-05-27 10:23] VITALS: BMI 46.7
== END 2024-07-26 23:59 | disposition home or self-care (01) ==
LOC: SPT 08:47
PROVIDERS: PCP Family Medicine; Visit Provider Family Medicine
DX: M54.42 Lumbago with sciatica, left side (principal); E03.9 Hypothyroidism, unspecified; E04.2 Nontoxic multinodular goiter
CPT/HCPCS: 97161; 99214

== ENCOUNTER 2024-07-29 09:01 | Outpatient (CLI) | payer MEDICARE, SELFPAY ==
[2024-05-27 10:20] VITALS: BP 134/79
[2024-05-27 10:23] VITALS: BMI 46.7
--- NOTE | 2024-07-29 09:40 | MM_ITS ---
WS: [id number] BILATERAL SCREENING DIGITAL TOMOSYNTHESIS MAMMOGRAM WITH CAD HISTORY: screening COMPARISON: 06/15/2023, 07/19/2022 Bilateral CC and MLO views with tomosynthesis and synthetic mammography submitted. Computer aided detection analyzed. Breast composition: There are scattered areas of fibroglandular density. No suspicious masses, microcalcifications or architectural distortion. MM/MM scr BI tomosynthesis [id number] IMPRESSION: BI-RADS: 1 - Negative. FOLLOW UP: 1 Year Follow-up
== END 2024-07-29 09:02 | disposition home or self-care (01) ==
PROVIDERS: PCP Family Medicine; Visit Provider Family Medicine
DX: Z12.31 Encounter for screening mammogram for malignant neoplasm of breast (principal); R92.323 Mammographic fibroglandular density, bilateral breasts
CPT/HCPCS: 77063; 77067

== ENCOUNTER 2024-07-30 10:06 | Day surgery (SDC) | payer MEDICARE, SELFPAY ==
[2024-05-27 10:20] VITALS: BP 134/79
[2024-05-27 10:23] VITALS: BMI 46.7
[2024-07-30 10:46] VITALS: BP 141/94; PULSE 84; RESP 18; TEMP 36.1; O2SAT 98; BMI 47.6
[2024-07-30 10:51] LABS: OR HCG Qualitative Urine Negative (Negative)
[2024-07-30] MEDS: sodium chloride 0.9% 1,000 ML 30 ML IV (10:55)
[2024-07-30 10:59] LABS: Glucose Point of Care 137 mg/dL (70-110)
--- NOTE | 2024-07-30 11:00 | ANES.PREANE2 ---
Pre-Anesthetic Assessment Height/Weight: Height 1.85 m Weight 163.747 kg Temp Pulse Resp BP Pulse Ox O2 Del Method 97.0 F L 84 18 141/94 98 Room Air 07/30/24 10:46 07/30/24 10:46 07/30/24 10:46 07/30/24 10:46 07/30/24 10:46 07/30/24 10:46 Preop Diagnosis: Screen Operation Date: 07/30/24 11:15 Proposed Procedures p Colonoscopy 78730, G0105, Z12.11(Not Applicable) - Hayes Forbes MD Familial anesthetic complications: none Was Beta Tan taken within 24 hours: N/A Was Clonidine taken within 24 hours: N/A Last intake: Intake Last Liquid Date 07/29/24 Last Liquid Time 23:59 Last Solid Date 07/28/24 Last Solid Time 22:00 Social No alcohol and No tobacco Exam alert, oriented x 3, clear to auscultation bilaterally and regular rate & rhythm Airway Cervical ROM: within normal limits Mallampati: Class II Comments: Comments: teeth intact Pulmonary None reported CV/HEM None reported None reported Hepatic None reported GI Gastroesophageal Reflux Disease Metabolic Diabetes Mellitus, Hyperlipidemia and Morbid Obesity BMI 47.6 Neuropsych Bipolar Anesthetic Plan ASA status: 3 Anesthesia: MAC Risk of > 500 ml blood loss (7ml/kg in children): No Medications/Allergies Home Medications ?Medication ?Instructions ?Recorded ?Confirmed ?Last Taken ?Type ferrous sulfate 27 mg iron tablet 27 mg PO DAILY 05/18/23 07/25/24 07/24/24 History metformin 500 mg tablet,extended 500 mg PO DAILY diabetes #30 tabs 08/11/23 07/30/24 07/28/24 Rx release 24 hr duloxetine 60 mg capsule,delayed 60 mg PO DAILY #30 caps 06/13/24 07/25/24 07/29/24 Rx release trazodone 50 mg tablet 100 mg (2 x 50 mg) PO BEDTIME PRN 06/13/24 07/25/24 07/29/24 Rx Sleep 30 days #60 tabs cetirizine 10 mg tablet 10 mg PO BID #20 tabs 07/08/24 07/30/24 07/29/24 Rx hydroxyzine HCl 50 mg tablet 50 mg PO QID PRN Anxiety 07/08/24 07/25/24 07/29/24 History ondansetron 8 mg disintegrating 8 mg PO TID PRN Nausea 07/08/24 07/25/24 Unknown History tablet prazosin 1 mg capsule 1 mg PO BEDTIME 07/08/24 07/25/24 07/29/24 History levothyroxine 300 mcg tablet 300 mcg PO DAILY #90 tabs 07/27/24 07/29/24 07/29/24 Rx (Unithroid) levothyroxine 50 mcg tablet 50 mcg PO DAILY #90 tabs 07/27/24 07/29/24 07/29/24 Rx (Unithroid) liothyronine 5 mcg tablet (Cytomel) 10 mcg (2 x 5 mcg) PO DAILY 1 07/29/24 07/30/24 07/29/24 Rx month #60 tabs Allergies Allergy/AdvReac Type Severity Reaction Status Date / Time zolpidem (From Ambien) Allergy Unknown ADR-Halluci Verified 07/25/24 10:11 nating sulfamethoxazole (From Allergy ALGY-Hives Verified 07/25/24 10:11 Bactrim) trimethoprim (From Bactrim) Allergy ALGY-Hives Verified 07/25/24 10:11 lorazepam (From Ativan) AdvReac ADR-Halluci Verified 07/25/24 10:11 nating prednisone AdvReac ADR-Agitate Verified 07/25/24 10:11 d Current Medications Generic Name Dose Route Start Last Admin Trade Name Freq PRN Reason Stop Dose Admin Sodium Chloride 1,000 mls @ 30 mls/hr 07/30/24 08:30 07/30/24 10:55 Sodium Chloride 0.9% IV 30 mls/hr .Q24H ROWAN Administration PFS Anesthesia Medical History Prediabetes Left hip pain Low back pain with left-sided sciatica Depression Irregular menstrual bleeding Orthostatic hypotension Multiple thyroid nodules 01/06/23 US nodule, Neck/Chest CT 03/30/23 nodule 2.7 x 2.6 cm in mediastinal Chronic dislocation of left shoulder Psychiatric care 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 H/O Desean thyroiditis Bipolar 1 disorder Post traumatic stress disorder (PTSD) Morbid obesity with body mass index (BMI) of 40.0 or higher Surgical History Hx of partial thyroidectomy done for thyroid nodules History of section X2 Family History Father Hypertension Dementia High cholesterol Stroke Mother Obesity Post traumatic stress disorder (PTSD) Cancer Thyroid disease Major depressive disorder Breast cancer Diabetes Sister Breast cancer Thyroid disease Cervical cancer Grandmother Breast cancer Diabetes Social History Smoking and tobacco/nicotine status: never used tobacco/nicotine Alcohol intake: never Substance/Drug Use: former Former substance use 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 Adopted: No Caregiver/support person: No Lives independently: Yes Household members: other Details: [facility] Marital status: Number of children: 3 Number of grandchildren: 0 Highest education level completed: High School Graduate service: No Current occupational status: disabled Previous occupational history: 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
--- NOTE | 2024-07-30 11:11 | W.PM.OPSUD ---
Surgery/Procedure H&P Update DATE OF PROCEDURE: July 30, 2024 DATE H&P PERFORMED: 07/11/24 H&P UPDATE INFORMATION: I have reviewed H&P completed within last 30 days, I have examined patient prior to procedure and No changes to prior documentation PREOP DIAGNOSIS: Screen PLANNED PROCEDURE: Operation Date: 07/30/24 11:15 Proposed Procedures p Colonoscopy 90307, G0105, Z12.11(Not Applicable) - Hayes Forbes MD
[2024-07-30 11:40] VITALS: BP 111/73; PULSE 77; RESP 18; TEMP 36.6; O2SAT 95
[2024-07-30 12:01] VITALS: BP 106/66; PULSE 73; RESP 18; O2SAT 99
--- NOTE | 2024-07-30 12:16 | ANE.PACU2 ---
Inpatient post-anesthesia follow up: Airway intact: Yes Vital signs: Temperature 97.8 F Pulse Rate 73 Respiratory Rate 18 Blood Pressure 106/66 Pulse Oximetry 99 Oxygen Delivery Me thod Room Air Oxygen Flow Rate Fraction of Inspir ed Oxygen Hydration adequate: Yes Nausea and vomiting: No Pain level: 1 Mental status: Baseline
== END 2024-07-30 12:17 | disposition home or self-care (01) ==
PROVIDERS: Student in an Organized Health Care Education/Training Program; PCP Family Medicine; Visit Provider Student in an Organized Health Care Education/Training Program
PROC: 0DJD8ZZ Inspection of Lower Intestinal Tract, Via Natural or Artificial Opening Endoscopic (ICD-10-PCS; CPT 45378; principal; 2024-07-30 11:15)
DX: Z12.11 Encounter for screening for malignant neoplasm of colon (principal); E11.9 Type 2 diabetes mellitus without complications; E66.09 Other obesity due to excess calories; E78.5 Hyperlipidemia, unspecified; Z68.42 Body mass index [BMI] 45.0-49.9, adult; Z79.899 Other long term (current) drug therapy; Z79.84 Long term (current) use of oral hypoglycemic drugs; E06.3 Autoimmune thyroiditis; Z79.890 Hormone replacement therapy; Z88.2 Allergy status to sulfonamides; Z88.0 Allergy status to penicillin
CPT/HCPCS: 36416; 81025; 82962; G0121; J2704; J7030

== ENCOUNTER → 2024-09-16 09:55 | Outpatient (BNVA) | payer MEDICARE, MEDICAID, SELFPAY ==
[2024-05-27 10:20] VITALS: BP 134/79
[2024-05-27 10:23] VITALS: BMI 46.7
== END ==
PROVIDERS: PCP Family Medicine; Visit Provider Internal Medicine
DX: E03.9 Hypothyroidism, unspecified (principal); E04.2 Nontoxic multinodular goiter; L50.9 Urticaria, unspecified
CPT/HCPCS: 99214

== ENCOUNTER 2024-09-20 10:25 | Emergency (ER) | payer MEDICARE, MEDICAID, SELFPAY ==
[2024-05-27 10:20] VITALS: BP 134/79
[2024-05-27 10:23] VITALS: BMI 46.7
[2024-09-20 10:51] VITALS: BP 140/88; PULSE 81; RESP 18; TEMP 36.6; O2SAT 97; BMI 49.1
--- NOTE | 2024-09-20 11:13 | W.ED.SKABFB ---
HPI - Skin/Abscess/Foreign Bdy General: Chief complaint: Skin/Abscess/Foreign Body Stated complaint: hive pain Time Seen by Provider: 09/20/24 10:26 Source: patient Mode of arrival: ambulatory Limitations: no limitations History of Present Illness: Patient is a 44-year-old female who presents to ED today with two complaints. First of all she tells me she has had hives intermittently over the past 3 weeks. Patient states she has a longstanding history of intermittent hives and states she has been told previously she has allergies to over 40 different varieties of mold, pollen, weeds, etc. Patient states she has been using Benadryl at home to help. She is adamantly declining steroids due to unwanted side effects. Her second complaint is pain to the left lower back radiating down into her buttock. No known injury or trauma. She denies saddle anesthesia or bowel or bladder dysfunction. MD complaint: rash and other (low back pain) Onset (ago): week(s) Location: generalized Severity: mild Pain Consistency: constant Relieving factors: other (rash-benadryl) Exacerbating factors: other (rash-heat) Context: none Associated symptoms: Reports no associated symptoms; Deny chills or fever(s) Treatments prior to arrival: Benadryl Related Data Home Medications ?Medication ?Instructions ?Recorded ?Confirmed ferrous sulfate 27 mg iron tablet 27 mg PO DAILY 05/18/23 09/20/24 hydroxyzine HCl 50 mg tablet 50 mg PO QID PRN Anxiety 07/08/24 09/20/24 ondansetron 8 mg disintegrating 8 mg PO TID PRN Nausea 07/08/24 09/20/24 tablet propranolol 20 mg tablet 20 mg PO BID 09/20/24 09/20/24 Previous Rx's ?Medication ?Instructions ?Recorded metformin 500 mg tablet,extended 500 mg PO DAILY diabetes #30 tabs 08/11/23 release 24 hr cetirizine 10 mg tablet 10 mg PO BID #20 tabs 07/08/24 levothyroxine 300 mcg tablet 300 mcg PO DAILY #90 tabs 07/27/24 (Unithroid) levothyroxine 50 mcg tablet 50 mcg PO DAILY #90 tabs 07/27/24 (Unithroid) liothyronine 5 mcg tablet (Cytomel) 10 mcg (2 x 5 mcg) PO DAILY 1 07/29/24 month #60 tabs duloxetine 60 mg capsule,delayed 60 mg PO DAILY #30 caps 09/11/24 release trazodone 50 mg tablet 100 mg (2 x 50 mg) PO BEDTIME PRN 09/11/24 Sleep 30 days #60 tabs prazosin 1 mg capsule 1 mg PO BEDTIME #30 caps 09/13/24 cyclobenzaprine 10 mg tablet 10 mg PO TID #14 tabs 09/20/24 ibuprofen 800 mg tablet 800 mg PO Q8H PRN pain #20 tabs 09/20/24 Allergies Allergy/AdvReac Type Severity Reaction Status Date / Time zolpidem (From Ambien) Allergy Unknown ADR-Halluci Verified 09/13/24 13:12 nating sulfamethoxazole (From Allergy ALGY-Hives Verified 09/13/24 13:12 Bactrim) trimethoprim (From Bactrim) Allergy ALGY-Hives Verified 09/13/24 13:12 lorazepam (From Ativan) AdvReac ADR-Halluci Verified 09/13/24 13:12 nating prednisone AdvReac ADR-Agitate Verified 09/13/24 13:12 d Review of Systems Const: Denies: fever(s), chills, body aches, fatigue or malaise Card: Denies: chest pain Resp: Denies: dyspnea GI: Denies: abdominal pain : Denies: flank pain, dysuria or hematuria Musc: Reports: back pain; Denies: neck pain, extremity pain, extremity swelling, joint pain, joint swelling, joint redness or joint warmth Skin/Breast: Reports: rash and pruritus Neuro: Denies: headache(s), numbness in extremities, weakness in extremities, sensory changes or dizziness PFS ED PFSH: Medical History Prediabetes Left hip pain Low back pain with left-sided sciatica Depression Irregular menstrual bleeding Orthostatic hypotension Multiple thyroid nodules 01/06/23 US nodule, Neck/Chest CT 03/30/23 nodule 2.7 x 2.6 cm in mediastinal Chronic dislocation of left shoulder Psychiatric care 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 H/O Desean thyroiditis Bipolar 1 disorder Post traumatic stress disorder (PTSD) Morbid obesity with body mass index (BMI) of 40.0 or higher Surgical History Hx of partial thyroidectomy done for thyroid nodules History of section X2 Family History Father Hypertension Dementia High cholesterol Stroke Mother Obesity Post traumatic stress disorder (PTSD) Cancer Thyroid disease Major depressive disorder Breast cancer Diabetes Sister Breast cancer Thyroid disease Cervical cancer Grandmother Breast cancer Diabetes Social History Smoking and tobacco/nicotine status: never used tobacco/nicotine Alcohol intake: never Substance/Drug Use: former Former substance use 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 Adopted: No Caregiver/support person: No Lives independently: Yes Household members: other Details: [facility] Marital status: Number of children: 3 Number of grandchildren: 0 Highest education level completed: High School Graduate service: No Current occupational status: disabled Previous occupational history: 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 for psych; 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 Pets and animals: Yes Pets & animals: cat(s) Leisure activites: games and reading Sexually active: No Do you think of yourself as: Bisexual Current gender identity: Female Katerina/Yazidi: Christianity Special katerina needs: No Agree to transfusion: Yes Female Reproductive History: Para: 3 Spontaneous abortions: Yes (SAB) Physical Exam Const: COMMON NORMALS: no acute distress, patient oriented x3, no limitations and alert GENERAL APPEARANCE: cooperative NUTRITIONAL APPEARANCE: obese morbidly obese (BMI 49.2) Eye: GENERAL EYE: appearance normal, both eyes and all related structures Resp: COMMON NORMALS: normal respiratory effort and clear to auscultation bilaterally AUSCULTATION: clear to auscultation bilaterally Cardio: COMMON NORMALS: regular rate and regular rhythm RATE: regular rate RHYTHM: regular rhythm GI: COMMON NORMALS: Normal to inspection, nondistended, normoactive bowel sounds present, Soft to palpation and non-tender PALPATION: Yes Soft to palpation : COMMON NORMALS: Yes no CVA tenderness BLADDER/KIDNEY EXAM: Yes no CVA tenderness Back/Pelvis: COMMON NORMALS: no CVA tenderness, thoracic and lumbar spine normal to inspection and no thoracic nor lumbar tenderness BACK IMAGE (FEMALE):  1. TTP Extremity: COMMON NORMALS: normal to inspection and full ROM GENERAL: Yes normal exam except as noted Neuro: COMMON NORMALS: patient oriented x3, moves all extremities, no focal motor deficits and no sensory deficits noted SENSORIUM/ORIENTATION: Yes alert Skin: RASHES: rashes noted (generalized mild urticaria) Course Vital Signs: Vital signs: Vital Signs Temperature 97.8 F 09/20/24 10:51 Pulse Rate 85 09/20/24 11:29 Respiratory Rate 16 09/20/24 11:29 Blood Pressure 148/88 09/20/24 11:29 Pulse Oximetry 98 09/20/24 11:29 Oxygen Delivery Me thod Room Air 09/20/24 11:29 MDM - Skin/Abscess/Foreign Bdy Medicial Decision Making Patient here with a complaint of hives as well as left lower back pain. She has a chronic history of intermittent hives. She is already taking Benadryl at home. She adamantly declines steroids. Discussed possibly using Pepcid here but she feels comfortable continuing the Benadryl at home. Discussed treatment for her lower back pain. She has no acute red flags on her history or physical exam. Will treat with anti-inflammatories and muscle relaxers. Recommend she follow-up with primary care-possibly referral to derm if rash does not improve. No radiology studies performed this visit Discharge Plan Discharge Patient Disposition: Home Clinical Impression: Hives, Low back pain radiating to left leg Condition: Stable Prescriptions: New cyclobenzaprine 10 mg tablet 10 mg PO TID Qty: 14 0RF ibuprofen 800 mg tablet 800 mg PO Q8H PRN (Reason: pain) Qty: 20 0RF No Action metformin 500 mg tablet extended release 24 hr 500 mg PO DAILY Qty: 30 5RF levothyroxine [Unithroid] 300 mcg tablet 300 mcg PO DAILY Qty: 90 0RF Rx Instructions: take 350 mcg levothyroxine daily and liothyronine 10 mcg daily levothyroxine [Unithroid] 50 mcg tablet 50 mcg PO DAILY Qty: 90 0RF ferrous sulfate 27 mg iron tablet 27 mg PO DAILY liothyronine [Cytomel] 5 mcg tablet 10 mcg PO DAILY 30 Days Qty: 60 3RF duloxetine 60 mg capsule,delayed release(DR/EC) 60 mg PO DAILY Qty: 30 2RF trazodone 50 mg tablet 100 mg PO BEDTIME PRN (Reason: Sleep) 30 Days Qty: 60 2RF prazosin 1 mg capsule 1 mg PO BEDTIME Qty: 30 11RF hydroxyzine HCl 50 mg tablet 50 mg PO QID PRN (Reason: Anxiety) ondansetron 8 mg tablet,disintegrating 8 mg PO TID PRN (Reason: Nausea) cetirizine 10 mg tablet 10 mg PO BID Qty: 20 0RF propranolol 20 mg tablet 20 mg PO BID Discharge Orders: Discharge ED (Routine); Ordered 09/20/24 Ordered By: Jackelyn Torres Referrals: Ghada Briscoe MD [Primary Care Provider] - Print Language: Thai Coding Level of Care Code ED Quantometer Operator for Vivian Adamson
[2024-09-20] MEDS: orphenadrine 30 mg/mL Inj 2 mL 60 MG IM (11:23)
[2024-09-20] MEDS: ketorolac 60 mg/2 mL INJ IM (11:23)
[2024-09-20 11:29] VITALS: BP 148/88; PULSE 85; RESP 16; O2SAT 98
[2024-09-20 12:00] VITALS: BP 130/70; PULSE 79; O2SAT 97
== END 2024-09-20 12:02 | disposition home or self-care (01) ==
PROVIDERS: Emergency Provider Physician Assistant; PCP Family Medicine
DX: L50.9 Urticaria, unspecified (principal); M54.50 Low back pain, unspecified; Z79.84 Long term (current) use of oral hypoglycemic drugs
CPT/HCPCS: 96372; 99284; J1885; J2360

== ENCOUNTER → 2024-09-24 11:16 | Outpatient (BNVA) | payer MEDICARE, MEDICAID, SELFPAY ==
[2024-05-27 10:20] VITALS: BP 134/79
[2024-05-27 10:23] VITALS: BMI 46.7
== END ==
PROVIDERS: PCP Family Medicine; Visit Provider Family Medicine
DX: N92.6 Irregular menstruation, unspecified (principal); D50.9 Iron deficiency anemia, unspecified; R39.15 Urgency of urination
CPT/HCPCS: 83540; 85025; 87086

== ENCOUNTER → 2024-10-15 16:00 | Outpatient (BNVA) | payer MEDICARE, MEDICAID, SELFPAY ==
[2024-05-27 10:20] VITALS: BP 134/79
[2024-05-27 10:23] VITALS: BMI 46.7
== END ==
PROVIDERS: PCP Family Medicine; Visit Provider Family Medicine
DX: L50.9 Urticaria, unspecified (principal)
CPT/HCPCS: 80053; 85025; 86003; 86008

== ENCOUNTER 2024-10-20 14:23 | Emergency (ER) | payer MEDICARE, MEDICAID, SELFPAY ==
[2024-05-27 10:20] VITALS: BP 134/79
[2024-05-27 10:23] VITALS: BMI 46.7
[2024-10-20 14:24] VITALS: BP 131/87; PULSE 89; RESP 18; TEMP 37.1; O2SAT 99; BMI 50.1
--- NOTE | 2024-10-20 14:51 | ECG_ITS ---
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: : 1980 Requested By: Iggy Michelle Order Number: [id number] Ann MD: DISHA CABALLERO Measurements Intervals [place] Rate: 78 P: 69 [place]: 203 QRS: 31 QRSD: 115 T: 48 QT: 378 QTc: 432 Interpretive Statements SINUS RHYTHM INCOMPLETE RIGHT BUNDLE BRANCH BLOCK [90+ ms QRS DURATION, TERMINAL R IN V1/V2, 40+ ms S IN I/aVL/V4/V5/V6] Compared to ECG 12/08/2023 23:49:47 Incomplete right bundle-branch block now present Left-axis deviation no longer present Electronically Signed On 10-21-2024 19:04:15 CDT by DISHA CABALLERO [email or web address]
--- NOTE | 2024-10-20 15:26 | ED_ITS ---
HPI - Skin/Abscess/Foreign Bdy General: Chief complaint: Skin/Abscess/Foreign Body Stated complaint: lower extremity swelling, hives, nausea Time Seen by Provider: 10/20/24 14:26 History of Present Illness: 44-year-old female presents with multipl e complaints including chronic urticaria for 3 months, bilateral leg swelling for 2 weeks, and generalized pain. Patient reports new onset shortness of breath for 2 hours prior to arrival, associated with tingling sensation throughout her body and chest fluttering. She describes severe pain in bilateral lower legs with swelling extending up to just below the knees, noting the affected areas are warm to touch and tender. The leg pain is reportedly interfering with sleep. Patient has been previously evaluated by PCP and ER for urticaria, with minimal relief from oral Benadryl and Zyrtec. She has a pending appointment with an frame tender on October 24. Patient also reports a 2-year history of urinary incontinence, for which she has a pending CT abdomen/pelvis and urology referral. Recent allergy testing, including alpha gal and comprehensive allergen panel, was reportedly negative. PCP has been hesitant to prescribe steroids, and patient was provided with an EpiPen for potential anaphylaxis. Related Data Home Medications ?Medication ?Instructions ?Recorded ?Confirmed hydroxyzine HCl 50 mg tablet 50 mg PO QID PRN Anxiety 07/08/24 10/20/24 ondansetron 8 mg disintegrating 8 mg PO TID PRN Nausea 07/08/24 10/15/24 tablet Previous Rx's ?Medication ?Instructions ?Recorded levothyroxine 300 mcg tablet 300 mcg PO DAILY #90 tabs 07/27/24 (Unithroid) levothyroxine 50 mcg tablet 50 mcg PO DAILY #90 tabs 0 07/27/24 (Unithroid) liothyronine 5 mcg tablet (Cytomel) 10 mcg (2 x 5 mcg) PO DAILY 1 07/29/24 month #60 tabs duloxetine 60 mg capsule,delayed 60 mg PO DAILY #30 ca ps 09/11/24 release trazodone 50 mg tablet 100 mg (2 x 50 mg) PO BEDTIM E PRN 09/11/24 Sleep 30 days #60 tabs prazosin 1 mg capsule 1 mg PO BEDTIME #30 caps omeprazole 20 mg capsule,delayed 20 mg PO QAM #30 caps 09/24/24 release metformin 500 mg tablet,extended 500 mg PO DAILY diabe joe #30 tabs 10/08/24 release 24 hr cetirizine 10 mg tablet 20 mg (2 x 10 mg) PO BID #12 0 tabs 10/15/24 epinephrine 0.3 mg/0.3 mL 0.3 mg (0.3 mL) IM Q10M PRN 10/15/24 injection, auto-injector (EpiPen anaphylaxis #2 ea 2-Robb) pregabalin 50 mg capsule (Lyrica) 50 mg PO Q8H #90 cap s 10/20/24 Allergies Allergy/AdvReac Type Severity Reaction Status Date / Time zolpidem (From Ambien) Allergy Unknown ADR-Halluci Verified 10/15/24 14:44 nating sulfamethoxazole (From Allergy ALGY-Hives Verified 10/15/24 14:44 Bactrim) trimethoprim (From Bactrim) Allergy ALGY-Hives Verified 10/15/24 14:44 lorazepam (From Ativan) AdvReac ADR-Halluci Verified 10/15/24 14:44 nating prednisone AdvReac ADR-Agitate Verified 10/15/24 14:44 d [facility] ED PFSH: Medical History (Updated 10/20/24 @ 15:30 by Iggy Michelle MD) Abdominal pain, bilateral lower quadrant Urge incontinence Prediabetes Left hip pain Low back pain with left-sided sciatica Depression Irregular menstrual bleeding Orthostatic hypotension Multiple thyroid nodules 01/06/23 US nodule, Neck/Chest CT 03/30/23 nodule 2.7 x 2.6 cm in mediastinal Chronic dislocation of left shoulder Psychiatric care 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 H/O Desean thyroiditis Bipolar 1 disorder Post traumatic stress disorder (PTSD) Morbid obesity with body mass index (BMI) of 40.0 or higher Surgical History Hx of colonoscopy 3.4.25 normal Hx of partial thyroidectomy done for thyroid nodules History of section X2 Family History Father Hypertension Dementia High cholesterol Stroke Mother Obesity Post traumatic stress disorder (PTSD) Cancer Thyroid disease Major depressive disorder Breast cancer Diabetes Sister Breast cancer Thyroid disease Cervical cancer Grandmother Breast cancer Diabetes Social History Smoking and tobacco/nicotine status: never used tobacco/nicotine Alcohol intake: never Substance/Drug Use: former Former substance use 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 Adopted: No Caregiver/support person: No Lives independently: Yes Household members: other Details: [facility] Marital status: Number of children: 3 Number of grandchildren: 0 Highest education level completed: High School Graduate service: No Current occupational status: disabled Previous occupational history: 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 for psych; was a N[employer]SE [employer] in past Pets and animals: Yes Pets & animals: cat(s) Leisure activites: games and reading Sexually active: No Do you think of yourself as: Bisexual Current gender identity: Female Katerina/Shinto: Gnosticism Special katerina needs: No Agree to transfusion: Yes Female Reproductive History: Para: 3 Spontaneous abortions: Yes (SAB) Physical Exam Const: COMMON NORMALS: no acute distress, average body habitus, alert and well nourished GENERAL APPEARANCE: cooperative ORIENTATION/CONSCIOUSNESS: Yes awake OTHER: morbidly obese female, in no distress HENMT: COMMON NORMALS: normocephalic and atraumatic HEAD & SCALP: normocephalic and atraumatic Eye: COMMON NORMALS: conjunctivae normal CONJUNCTIVA: Yes conjunctivae normal Neck/C-Spine: GENERAL: Yes normal visual inspection Resp: COMMON NORMALS: normal respiratory effort, No retractions and No use of accessory muscles Cardio: COMMON NORMALS: regular rhythm and Peripheral pulses 2+ throughout RHYTHM: regular rhythm PERIPHERAL PULSES: Peripheral pulses 2+ throughout GI: COMMON NORMALS: Soft to palpation and non-tender PALPATION: Yes Soft to palpation Extremity: COMMON NORMALS: full ROM NARRATIVE EXTREMITY EXAM: obese, mild swelling noted bilaterally, no pitting. Neuro: COMMON NORMALS: no focal motor deficits SENSORIUM/ORIENTATION: Yes alert Skin: NARRATIVE SKIN EXAM: scattered 2-3cm macular lesions to the skin of torso and extremities. no vesicles. no Course Vital Signs: Vital signs: Vital Signs Temperature 98.8 F 10/20/24 14:24 Pulse Rate 89 10/20/24 14:24 Respiratory Rate 18 10/20/24 14:24 Blood Pressure 131/87 10/20/24 14:24 Pulse Oximetry 99 10/20/24 14:24 Oxygen Delivery Me thod Room Air 10/20/24 14:24 MDM - Skin/Abscess/Foreign Bdy Medicial Decision Making ROS: Constitutional: Denies fever HEENT: No current tongue or lip swelling Respiratory: Reports shortness of breath Cardiovascular: Reports chest fluttering Musculoskeletal: Bilateral lower extremity pain and swelling Neurological: Reports generalized tingling sensation Skin: Current mild urticaria : Reports urinary incontinence MEDICATIONS AND ALLERGIES: Current Medications: - Diphenhydramine (Benadryl) 50mg PO - Cetirizine (Zyrtec) - Previously tried gabapentin with poor tolerance Allergies: No known drug allergies PAST HISTORICAL DATA: PMH: - Prediabetes - Chronic urticaria - Chronic urinary incontinence - History of nerve pain Social History: - Sedentary lifestyle - Has insurance VITAL SIGNS: BP: 120/80 HR: 88 O2 sat: 97% on room air PHYSICAL EXAM: General: Alert, non-toxic appearing, in no apparent distress HEENT: Head normocephalic and atraumatic. Mucous membranes moist. No tongue or lip swelling. Oropharynx normal Neck: Supple Respiratory: Lungs clear to auscultation bilaterally. No wheezing or increased work of breathing Cardiac: Regular rate and rhythm, 2+ pulses in all extremities Extremities: Bilateral lower extremity edema extending to below knees, warm to touch, tender Skin: Mild urticaria present Neuro: Cranial nerves grossly intact, no focal motor or sensory deficits noted INITIAL IMPRESSION AND PLAN: Given the history and presentation, the primary working diagnoses include chronic urticaria with possible angioedema, bilateral lower extremity edema of unclear etiology, and neuropathic pain. Additional considerations include cardiac arrhythmia given reported palpitations. Plan: 1. EKG to evaluate reported chest fluttering 2. Prescribe Lyrica for neuropathic pain 3. Recommend compression stockings and leg elevation 4. Continue current antihistamine regimen TEST INTERPRETATIONS: Recent Labs (5 days ago): CBC: - WBC: 3.95 - Hgb: 12 - Hct: 38 - Platelets: 234 CMP: - Sodium: 137 - Potassium: 4.2 - Chloride: 100 - Bicarb: 24 - BUN: 10 - Creatinine: 0.6 - Glucose: 158 - AST: 42 - ALT: 51 - Alk Phos: 118 - Albumin: 4.4 Allergy Testing: - Alpha gal: Undetectable - Comprehensive allergen panel: Non-reactive EKG is sinus rhythm with a rate of 70 bpm. She has an incomplete right bundle branch block noted. No other dysrhythmias or ectopy. No ischemic ST changes. Normal axis. QTc of 411 ms. Interpreted at 1458. CONSIDERED BUT NOT PERFORMED: Additional laboratory testing not performed due to recent normal comprehensive labs from 5 days ago FINAL IMPRESSION: Based on all the above, my clinical impression is most compatible with: 1. Chronic urticaria 2. Bilateral lower extremity edema 3. Neuropathic pain The clinical picture is not currently suggestive of acute allergic reaction, deep vein thrombosis, or acute cardiac event. Although other conditions were also considered, they were deemed unlikely based on the clinical information available. CLINICAL DISPOSITION: The patient's current condition is stable in my estimation and the most appropriate and indicated disposition at this time is discharge home with close follow-up. Rationale for Discharge: Patient is hemodynamically stable with normal vital signs, clear lung examination, and no signs of acute cardiopulmonary compromise. Recent comprehensive labs are reassuring. Patient has appropriate follow-up already arranged with both frame tender and primary care. New medication (Lyrica) being prescribed for symptom management. CASE SUMMARY: 44-year-old female with chronic urticaria presented to ED with worsening bilateral lower extremity edema, generalized pain, and new onset shortness of breath with chest fluttering. Recent workup including CBC, CMP, and allergy testing was largely unremarkable. Physical exam revealed bilateral lower extremity edema without signs of DVT. Patient was prescribed Lyrica for neuropathic pain symptoms and discharged home with close follow-up with previously arranged specialist appointments. Medical Records I reviewed the patient's medical records. No radiology studies performed this visit Discharge Plan Discharge Patient Disposition: Home Clinical Impression: Edema, peripheral, Rash, Palpitations Condition: Stable Prescriptions: New pregabalin [Lyrica] 50 mg capsule 50 mg PO Q8H Qty: 90 0RF No Action levothyroxine [Unithroid] 300 mcg tablet 300 mcg PO DAILY Qty: 90 0RF Rx Instructions: along with 50mcg to =350mcg and liothyronine 10 mcg daily levothyroxine [Unithroid] 50 mcg tablet 50 mcg PO DAILY Qty: 90 0RF Rx Instructions: along with 300mcg to =350mcg daily and liothyronine omeprazole 20 mg capsule,delayed release(DR/EC) 20 mg PO QAM Qty: 30 5RF cetirizine 10 mg tablet 20 mg PO BID Qty: 120 0RF Rx Instructions: for severe hives epinephrine [EpiPen 2-Robb] 0.3 mg/0.3 mL auto-injector 0.3 mg IM Q10M PRN (Reason: anaphylaxis) Qty: 2 0RF Rx Instructions: for 2 doses liothyronine [Cytomel] 5 mcg tablet 10 mcg PO DAILY 30 Days Qty: 60 3RF duloxetine 60 mg capsule,delayed release(DR/EC) 60 mg PO DAILY Qty: 30 2RF trazodone 50 mg tablet 100 mg PO BEDTIME PRN (Reason: Sleep) 30 Days Qty: 60 2RF prazosin 1 mg capsule 1 mg PO BEDTIME Qty: 30 11RF metformin 500 mg tablet extended release 24 hr 500 mg PO DAILY Qty: 30 5RF hydroxyzine HCl 50 mg tablet 50 mg PO QID PRN (Reason: Anxiety) ondansetron 8 mg tablet,disintegrating 8 mg PO TID PRN (Reason: Nausea) Discharge Orders: Discharge ED (Routine); Ordered 10/20/24 Ordered By: Iggy Michelle Referrals: Ghada Briscoe MD [Primary Care Provider, Family Practice] Discharge Diet: Low Salt Discharge Activity: Increase activity as tolerated Patient Instructions: Leg Edema (ED), Opioid Safety, Pain Management Activity Restrictions/Additional Instructions: You have been diagnosed with chronic urticaria and lower extremity swelling with neuropathic pain. Continue your current antihistamine medications as prescribed. Start Lyrica as prescribed for nerve pain. Purchase compression stockings and use them during the day, and elevate your legs when possible. Return to the Emergency Department immediately if you develop difficulty breathing, severe swelling of the tongue or throat, chest pain, or if your leg swelling significantly worsens. Keep your scheduled follow-up appointments with the frame tender and your primary care physician. Print Language: Nepali Coding Level of Care Code ED Roving Can Tender for Vivian Adamson
[2024-10-20 15:42] VITALS: BP 115/74; PULSE 80; O2SAT 99
== END 2024-10-20 16:00 | disposition home or self-care (01) ==
PROVIDERS: Emergency Provider Student in an Organized Health Care Education/Training Program; PCP Family Medicine
DX: R60.0 Localized edema (principal); L50.8 Other urticaria; R21 Rash and other nonspecific skin eruption; R00.2 Palpitations
CPT/HCPCS: 93005; 99283

== ENCOUNTER 2024-10-28 08:55 | Outpatient (CLI) | payer MEDICARE, SELFPAY ==
[2024-05-27 10:20] VITALS: BP 134/79
[2024-05-27 10:23] VITALS: BMI 46.7
--- NOTE | 2024-10-28 09:30 | CT_ITS ---
WS: [id number] CT ABDOMEN AND PELVIS NONCONTRAST HISTORY: lower abd pain pain bilaterally TECHNIQUE: Imaging performed through the abdomen and pelvis. Coronal and sagittal reformats are submitted. All CT scans at [facility] use at least one of these dose optimization techniques: automated exposure control; mA and/or kV adjustment per patient size (includes targeted exams where dose is matched to clinical indication); or iterative reconstruction. DLP: 1606.03 mGy.cm COMPARISON: None available. Lower thorax: Lung bases are clear. Visualized heart is normal. No hiatal hernia. Liver: Marked low-attenuation throughout the entire liver and the liver is enlarged measuring 27.8 cm in length. No intrahepatic duct dilatation. Gallbladder: Normal gallbladder. No pericholecystic fluid or cholelithiasis. No gallbladder wall thickening. Pancreas: Normal size and attenuation. Normal pancreatic duct. No pancreatitis or mass. Spleen: Spleen is enlarged measuring 16.2 cm in length. Splenic granulomata. Adrenal glands: Normal. No mass. Right kidney: Normal size kidney with no mass or hydronephrosis. Left kidney: Normal size kidney with no mass or hydronephrosis. Aorta: Normal abdominal aorta, no aneurysm or atherosclerosis. No free fluid, intraperitoneal air or significant lymphadenopathy. GI tract: Stomach is nondistended. No small bowel obstruction. Moderate diffuse constipation. Normal appendix. Abdominal wall: Soft tissue anasarca. Fat-containing umbilical hernia. Pelvis: No free fluid. Uterus is present. No pelvic masses. Osseous structures: Unremarkable. CT/CT abdomen pelvis wo con [id number] IMPRESSION: 1. Marked hepatosplenomegaly. 2. Marked hepatic steatosis. 3. No renal obstruction. 4. Diffuse constipation. 5. Negative appendix. 6. No renal obstruction.
[2024-10-28 11:14] LABS: Free T4 Free Thyroxine 1.03 ng/dL (0.82-1.77); Thyroid Stimulating Hormone 3.61 uIU/mL (0.27-4.20)
[2024-10-29 06:14] LABS: T3 Total 131 ng/dL (76-181)
== END 2024-10-28 08:56 | disposition home or self-care (01) ==
PROVIDERS: Internal Medicine; PCP Family Medicine; Visit Provider Family Medicine
DX: R10.31 Right lower quadrant pain (principal); R10.32 Left lower quadrant pain; E03.9 Hypothyroidism, unspecified; E04.2 Nontoxic multinodular goiter
CPT/HCPCS: 36415; 74176; 84439; 84443; 84480

== ENCOUNTER 2024-11-04 14:13 | Outpatient (CLI) | payer MEDICARE, MEDICAID, SELFPAY ==
[2024-05-27 10:20] VITALS: BP 134/79
[2024-05-27 10:23] VITALS: BMI 46.7
[2024-11-04 15:49] LABS: Hematocrit 35.7 % (36-47); Lymphocytes # 1.1 10^3/uL (0.8-4.8); Lymphocytes % 31.8 %; Mean Corpuscular HGB Conc 34.2 g/dL (30-55); Mean Corpuscular Hemoglobin 27.1 pg (27-33); Mean Corpuscular Volume 79.3 fl (85-98); Mean Platelet Volume 10.4 fL (7.4-10.4); Monocytes # 0.2 10^3/uL (0.2-0.9); Monocytes % 6.4 %; Neutrophils # 2.12 10^3/uL (1.8-7.7); Neutrophils % 61.2 %; Nucleated Red Blood Cells % 0 %; Platelet Count 244 10^3/cmm (157-399); Red Cell Distribution Width 12.3 % (12.1-15.1); White Blood Count 3.46 10^3/uL (3.29-11.43)
[2024-11-04 16:09] LABS: INR 0.92 (0.83-1.21)
[2024-11-04 16:11] LABS: Estmated Average Glucose 217; Hemoglobin A1C 9.2 % (4.0-6.0)
[2024-11-04 16:34] LABS: Alanine Aminotransferase 34 U/L (0-33); Albumin Level 4.1 g/dL (3.5-5.2); Alkaline Phosphatase 101 U/L (35-105); Aspartate Amino Transferase 26 U/L (0-32); Blood Urea Nitrogen 10 mg/dL (6-20); Carbon Dioxide 20 mmol/L (22-29); Chloride 102 mmol/L (98-107); Cholesterol 156 mg/dL (0-200); Ferritin 13 ng/mL (15-150); Globulin 2.4 g/dL (1.3-4.6); Glomerular Filtration Rate 90.5 mL/min (90-130); Glucose 210 mg/dL (65-115); HDL Cholesterol 41 mg/dL (60-100); Hepatitis A Antibody IgM Non-Reactive (Nonreactive); Hepatitis B Core AB, Total Non-Reactive (Nonreactive); Hepatitis B Surface AB 88.8 (11.5-1000); Hepatitis B Surface Antigen Non-Reactive (Nonreactive); Hepatitis C Virus Antibody Non-Reactive (Nonreactive); LDL Cholesterol Calculated 83 mg/dL (50-129); LDL HDL Ratio 2.02 RATIO (0.00-3.22); Osmolality Calculated 295 mOsm/kg (285-295); Sodium 140 mmol/L (136-145); Total Bilirubin 0.5 mg/dL (0.15-1.2); Total Protein 6.5 g/dL (6.6-8.7); Triglycerides 160 mg/dL (0-150)
[2024-11-04 17:08] LABS: HIV 1 & 2 Antibody Non-Reactive (Non-Reactiv); HIV 1 & 2 Antigen Non-Reactive (Non-Reactiv)
[2024-11-05 07:33] LABS: Alpha 1 Antitrypsin 162 mg/dL (83-199); Ceruloplasmin 38 mg/dL (14-48)
[2024-11-06 12:46] LABS: Anti-Nuclear Antibody Screen POSITIVE (NEGATIVE)
[2024-11-07 02:40] LABS: Tissue Transglutaminse AB IGA <1.0 U/mL
== END 2024-11-04 14:14 | disposition home or self-care (01) ==
LOC: LAB 14:17
PROVIDERS: PCP Family Medicine; Visit Provider Family Medicine
DX: K76.0 Fatty (change of) liver, not elsewhere classified (principal); R16.2 Hepatomegaly with splenomegaly, not elsewhere classified; R73.03 Prediabetes; E66.01 Morbid (severe) obesity due to excess calories
CPT/HCPCS: 36415; 80053; 80061; 82103; 82390; 82728; 83036; 83516; 85025; 85610; 86038; 86364; 86705; 86706; 86709; 86803; 87340; 87806

== ENCOUNTER → 2025-02-07 13:50 | Outpatient (BNVA) | payer OTHER, SELFPAY ==
[2024-05-27 10:20] VITALS: BP 134/79
[2024-05-27 10:23] VITALS: BMI 46.7
== END ==
PROVIDERS: PCP Family Medicine; Visit Provider Family Medicine
DX: E11.65 Type 2 diabetes mellitus with hyperglycemia (principal); R30.0 Dysuria
CPT/HCPCS: 82043; 83036; 87086

== ENCOUNTER → 2025-03-12 12:26 | Outpatient (BNVA) | payer MEDICARE, OTHER, MEDICAID, SELFPAY ==
[2024-05-27 10:20] VITALS: BP 134/79
[2024-05-27 10:23] VITALS: BMI 46.7
== END ==
PROVIDERS: PCP Family Medicine
DX: R39.9 Unspecified symptoms and signs involving the genitourinary system (principal)
CPT/HCPCS: 81000